=== PATIENT | male | born 1955 | race Caucasian/White ===

== ENCOUNTER 2016-12-01 05:22 | Emergency (ER) | payer OTHER, MEDICAID ==
[~2016-12-01] VITALS: Ht 177.8 cm; Wt 104.3 kg
[~2016-12-01 05:22] MED LIST: ACTOPLUS MET 501 TAB PO; AMITRIPTYLINE25 MG PO; CYCLOBENZAPRINE10 MG PO; DEXILANT60 M1 PO; FLOMAX0.4 MG PO; GABAPENTIN TAB600 MG PO; HYDROCODONE BIT1 T11 PO; LISINOPRIL40 MG PO; LOFIBRA160 MG PO; MORPHINE SULFAT3011 PO; NITROSTAT0.3 M1 SL
[2016-12-01 05:50] LABS: BILIRUBIN NEGATIVE (NEGATIVE); BLOOD 2+ (NEGATIVE); CLARITY CLEAR (CLEAR); COLOR YELLOW (YELLOW); GLUCOSE 3+ (NEGATIVE); KETONE NEGATIVE (NEGATIVE); LEUKO ESTERASE NEGATIVE (NEGATIVE); NITRITE NEGATIVE (NEGATIVE); PROTEIN 2+ (NEGATIVE); SPECIFIC GRAVITY 1.025 (1.005-1.030)
[2016-12-01 05:58] LABS: URINE AMPHETAMINES < 1000 (1000ng/ml); URINE BARBITURATES < 200 (200ng/ml); URINE COCAINE < 300 (300ng/ml)
[2016-12-01 06:03] LABS: BASO # 0.1 10*3/uL (0.0-0.1); BASO % 0.5 % (0.0-1.0); EOS # 0.3 10*3/uL (0.0-0.4); EOS % 3.1 % (1.0-4.0); HEMATOCRIT 43.6 % (42.0-52.0); HEMOGLOBIN 15.7 g/dl (14.0-18.0); IG # 0.1 10*3/uL (0.0-0.1); LYMPH % 28.5 % (27.0-41.0); MEAN CELL VOLUME 89.5 fl (80.0-94.0); MEAN CORPUSCULAR HGB 32.2 pg (27.0-31.0); MEAN PLATELET VOLUME 9.8 fl (9.6-12.3); MONO # 0.5 10*3/uL (0.1-1.0); MONO % 5.1 % (3.0-9.0); NEUT # 6.6 10*3/uL (2.3-7.9); NEUT % 62.3 % (47.0-73.0); PLATELET COUNT AUTOMATED 190 10*3/uL (130-400); RED BLOOD COUNT 4.87 10*6/uL (4.50-5.90); WHITE BLOOD COUNT 10.6 10*3/uL (4.8-10.8)
[2016-12-01 06:21] LABS: ALBUMIN 3.6 gm/dl (3.1-4.5); ALKALINE PHOSPHATASE 94 U/L (45-117); BILIRUBIN, TOTAL 0.6 mg/dl (0.2-1.0); BUN 22 mg/dl (7-24); CARBON DIOXIDE 30 mmol/L (21-32); CHLORIDE 105 mmol/L (98-107); EST GLOM FILT AFRICAN AMERICAN > 60 ml/min; GLUCOSE 268 mg/dL (65-99); POTASSIUM 4.1 mmol/L (3.5-5.1); SGOT/AST 9 IU/L (3-35); SGPT/ALT 20 U/L (12-78); SODIUM 141 mmol/L (136-145); TOTAL PROTEIN 7.1 gm/dL (6.4-8.2)
[2016-12-01 06:35] LABS: RBC 31-40 rbc/hpf (0-2)
[2016-12-01 06:36] LABS: BACTERIA TRACE; URINE REFLEX COMMENT YES (NO)
== END 2016-12-01 11:45 | disposition home or self-care (01) ==
LOC: ED 05:22
PROVIDERS: Emergency Medicine Emergency Medical Services
DX: F11.10 Opioid abuse, uncomplicated (principal); F17.200 Nicotine dependence, unspecified, uncomplicated; Z88.0 Allergy status to penicillin; Z88.8 Allergy status to other drugs, medicaments and biological substances; Z79.899 Other long term (current) drug therapy

== ENCOUNTER → 2017-05-05 | Outpatient (CLI) | payer OTHER, MEDICAID | END | disposition home or self-care (01) | LOC: RAD 13:51 | DX: J45.909 Unspecified asthma, uncomplicated (principal); E11.9 Type 2 diabetes mellitus without complications; I10 Essential (primary) hypertension; F17.200 Nicotine dependence, unspecified, uncomplicated ==

== ENCOUNTER 2017-06-18 21:05 | Emergency (ER) | payer OTHER, MEDICAID ==
[~2017-06-18] VITALS: Ht 182.8 cm; Wt 102.1 kg
[2017-06-18 21:36] LABS: BASO # 0.1 10*3/uL (0.0-0.1); BASO % 0.6 % (0.0-1.0); EOS # 0.3 10*3/uL (0.0-0.4); EOS % 3.3 % (1.0-4.0); HEMATOCRIT 41.2 % (42.0-52.0); LYMPH # 2.4 10*3/uL (1.3-4.4); LYMPH % 26.5 % (27.0-41.0); MEAN CORPUSCULAR HGB 32.4 pg (27.0-31.0); MEAN CORPUSCULAR HGB CONC 36.4 g/dl (33.0-37.0); MEAN PLATELET VOLUME 9.9 fl (9.6-12.3); MONO # 0.7 10*3/uL (0.1-1.0); MONO % 7.6 % (3.0-9.0); NEUT # 5.5 10*3/uL (2.3-7.9); NEUT % 61.7 % (47.0-73.0); PLATELET COUNT AUTOMATED 181 10*3/uL (130-400); RED BLOOD COUNT 4.63 10*6/uL (4.50-5.90); RED CELL DISTRI WIDTH 11.8 % (0-14.5)
[2017-06-18 21:47] LABS: ACT PARTIAL THROMBO TIME 23.5 SECONDS (20.8-31.5)
[2017-06-18 21:54] LABS: ALBUMIN 3.3 gm/dl (3.1-4.5); ALKALINE PHOSPHATASE 106 U/L (45-117); BUN 15 mg/dl (7-24); CHLORIDE 102 mmol/L (98-107); CREATININE 1.06 mg/dL (0.70-1.30); POTASSIUM 3.9 mmol/L (3.5-5.1); SGOT/AST 11 IU/L (3-35); SGPT/ALT 21 U/L (12-78); SODIUM 137 mmol/L (136-145); TOTAL PROTEIN 6.9 gm/dL (6.4-8.2)
[2017-06-18 21:55] LABS: TROPONIN I < 0.015 ng/ml (<0.045)
== END 2017-06-18 22:15 | disposition home or self-care (01) ==
LOC: ED 21:05
PROVIDERS: Student in an Organized Health Care Education/Training Program
DX: R00.2 Palpitations (principal); Z88.0 Allergy status to penicillin; Z88.8 Allergy status to other drugs, medicaments and biological substances; Z79.899 Other long term (current) drug therapy

== ENCOUNTER 2017-07-19 09:09 | Inpatient (IN) | payer OTHER, MEDICAID ==
[2017-07-19] VITALS (8 sets, daily range): BP systolic 112–190; BP diastolic 74–108
[~2017-07-19] VITALS: Ht 182.9 cm; Wt 102.1 kg
--- NOTE | ~2017-07-19 | ST ---
[place], [place] EXERCISE STRESS TEST REPORT [id number] UNIT #: [id number] ROOM: [facility] DOCTOR: MARIA D ARAGON MD BIRTHDATE: [birth year] DOS: Lexiscan portion of Cardiolite. 0.4 mg Lexiscan, duration of 10 seconds. Baseline cardiogram, sinus rhythm. With Lexiscan, no new EKG changes. Blood pressure and heart rate response was normal. The patient did have shortness of breath. FINAL IMPRESSION: No EKG changes. Positive for chest pain and shortness of breath. Blood pressure and heart rate response was normal. Nuclear images are reported separately. MARIA D ARAGON MD CM:STRESS:EXERCISE STRESS TEST REPORT [id number] MARIA D ARAGON MD
--- NOTE | ~2017-07-19 | CON ---
[place], [place] REPORT OF CONSULTATION NAME: [facility]SON [facility] [id number] UNIT #: [id number] ROOM: 505 DOCTOR: RENE JAIMES MD BIRTHDATE: [birth year] DOS: 07/20/2017 HISTORY OF PRESENT ILLNESS: This is a 61-year-old -[place] man with a history of coronary artery disease. He had a myocardial infarction back in 1996 and I believe he has some cardiomyopathy and has an AICD. He has a longstanding diabetes mellitus, essential hypertension, hyperlipidemia and has unilateral orchiectomy and suspected for opiate abuse. He smokes 1 pack of cigarettes per day and does not drink alcoholic beverages. He is and has 2 sons. He lives at home. He apparently woke up 4 nights ago with left anterior chest pain and heaviness was rather severe that went to the left arm and in the armpit and also to the left side of the neck. It lasted for some time. He took nitroglycerin with significant relief. He had milder episodes 3 days ago, but at night time, he has similar symptoms again. He went and saw Dr. Kumar yesterday morning and was sent to the hospital for further evaluation. He has some shortness of breath at night and sits up and smokes a cigarette to ease his symptom. He has no swelling of the lower extremity. The AICD has not discharged and he has no palpitations. He does have exertional shortness of breath and no abdominal pain, blood in the stools or any dark stools. FAMILY HISTORY: His mother had a heart attack. He does not know much about his father. HOME MEDICATIONS: Included aspirin, fenofibrate, lisinopril, metformin and Flonase. PHYSICAL EXAMINATION: GENERAL: This revealed the patient who is moderately obese and alert. He has a harsh cough. VITAL SIGNS: Temperature is normal, pulse is 80 regular, blood pressure 127/86. NECK: Normal JVP. AJR appeared to be positive. There is no bruit in the neck. HEART: There is no cardiomegaly, no murmurs are present. Good pedal pulses. EXTREMITIES: There is no edema at all in the lower extremities. RESPIRATORY: He is not tachypneic. Percussion note is normal. Auscultation reveals mildly reduced breath sounds with very few rhonchi bilaterally. LABORATORY DATA: An ECG showed normal sinus rhythm at a normal pattern. Glucose 250 mg/dL, BUN 16, creatinine 0.75, potassium 3.5 and troponin I was normal. IMPRESSION: 1. This patient with coronary artery disease and presumably ischemic cardiomyopathy, has had symptoms that are suggestive of myocardial ischemia. ECG is clearly abnormal and he has ruled out for an acute myocardial infarction. He probably would benefit from use of a beta-aure and Dr. Kumar has already recommended a Lexiscan Cardiolite study, which he will be performed tomorrow. 2. Nicotine addiction. I talked him about this and he tells me he is attempting to cut down or quit smoking. [place], [place] REPORT OF CONSULTATION NAME: MICHELE SWENSON [facility] [id number] UNIT #: [id number] ROOM: [facility] DOCTOR: RENE JAIMES MD BIRTHDATE: [birth year] I thank you for this consult. RENE JAIMES MD CM:CONSTR:REPORT OF CONSULTATION 1141 08/12/17 0812 interface
[2017-07-19 09:44] LABS: BASO % 0.4 % (0.0-1.0); EOS # 0.4 10*3/uL (0.0-0.4); EOS % 3.4 % (1.0-4.0); HEMATOCRIT 44.6 % (42.0-52.0); HEMOGLOBIN 16.3 g/dl (14.0-18.0); LYMPH # 2.6 10*3/uL (1.3-4.4); LYMPH % 23.5 % (27.0-41.0); MEAN CELL VOLUME 88.1 fl (80.0-94.0); MEAN CORPUSCULAR HGB 32.2 pg (27.0-31.0); MEAN CORPUSCULAR HGB CONC 36.5 g/dl (33.0-37.0); MEAN PLATELET VOLUME 10.4 fl (9.6-12.3); MONO # 0.6 10*3/uL (0.1-1.0); MONO % 5.4 % (3.0-9.0); NEUT # 7.3 10*3/uL (2.3-7.9); NEUT % 66.7 % (47.0-73.0); PLATELET COUNT AUTOMATED 202 10*3/uL (130-400); RED BLOOD COUNT 5.06 10*6/uL (4.50-5.90); RED CELL DISTRI WIDTH 12.1 % (0-14.5)
[2017-07-19 09:52] LABS: ACT PARTIAL THROMBO TIME 22.3 SECONDS (20.8-31.5); INTERNATIONAL NORM RATIO 0.9 (2.0-3.5)
[2017-07-19 09:57] LABS: ALBUMIN 3.4 gm/dl (3.1-4.5); ALKALINE PHOSPHATASE 110 U/L (45-117); BUN 17 mg/dl (7-24); CHLORIDE 105 mmol/L (98-107); CREATININE 0.92 mg/dL (0.70-1.30); LIPASE 140 U/L (73-393); POTASSIUM 4.1 mmol/L (3.5-5.1); SGOT/AST 10 IU/L (3-35); SGPT/ALT 25 U/L (12-78); SODIUM 137 mmol/L (136-145); TOTAL PROTEIN 7.2 gm/dL (6.4-8.2)
[2017-07-19 10:01] LABS: TROPONIN I < 0.015 ng/ml (<0.045)
[2017-07-19] MEDS ORDERED: ASPIR LOW81 MG PO (12:17)
[2017-07-19] MEDS ORDERED: FLONASE ALLERG9.9 ML NAS (12:18)
[2017-07-19 15:44] LABS: BILIRUBIN NEGATIVE (NEGATIVE); BLOOD NEGATIVE (NEGATIVE); CLARITY CLEAR (CLEAR); COLOR YELLOW (YELLOW); GLUCOSE 3+ (NEGATIVE); KETONE NEGATIVE (NEGATIVE); LEUKO ESTERASE NEGATIVE (NEGATIVE); NITRITE NEGATIVE (NEGATIVE); PH 6.5 (5.0-9.0); UROBILINOGEN 0.2 E.U./dl (0.2-1.0)
[2017-07-19 15:48] LABS: URINE AMPHETAMINES < 1000 (1000ng/ml); URINE BARBITURATES < 200 (200ng/ml); URINE BENZODIAZEPINES < 200 (200ng/ml); URINE CANNABINOIDS (THC) < 50 (50ng/ml); URINE COCAINE < 300 (300ng/ml); URINE METHADONE < 300 (300ng/ml); URINE OPIATES > 300 (300ng/ml); URINE PHENCYCLIDINE < 25 (25ng/ml)
[2017-07-19 15:55] LABS: BACTERIA 2+; RBC 0-2 rbc/hpf (0-2); WBC 0-2 wbc/hpf (0-5)
[2017-07-20] VITALS: BP 122/60; BP 159/63
[2017-07-20 04:00] VITALS: BP 109/56
[2017-07-20 07:10] LABS: ALBUMIN 3.2 gm/dl (3.1-4.5); ALKALINE PHOSPHATASE 103 U/L (45-117); BUN 16 mg/dl (7-24); CHLORIDE 105 mmol/L (98-107); CHOLESTEROL 200 mg/dL (<200); CREATININE 0.75 mg/dL (0.70-1.30); FREE T4 1.13 ng/dl (0.76-1.46); HDL CHOLESTEROL 40 mg/dl (40-60); LDL CHOLESTEROL 87 mg/dL (9-159); PHOSPHOROUS 2.7 mg/dL (2.5-4.9); POTASSIUM 3.5 mmol/L (3.5-5.1); SGOT/AST 7 IU/L (3-35); SGPT/ALT 20 U/L (12-78); SODIUM 139 mmol/L (136-145); TOTAL PROTEIN 6.6 gm/dL (6.4-8.2); TRIGLYCERIDES 363 mg/dl (<150); VLDL CHOLESTEROL 73 mg/dL (6-40)
[2017-07-20 07:16] LABS: THYROID STIM HORMONE (HS) 0.899 uIU/ml (0.358-4.75)
[2017-07-20 08:00] VITALS: BP 127/86
[2017-07-20 08:34] LABS: VITAMIN D, 25-HYDROXY 8.3 ng/mL (30-100)
[2017-07-20 12:00] VITALS: BP 113/52
[2017-07-20 16:00] VITALS: BP 108/67
[2017-07-20 20:00] VITALS: BP 109/56
[2017-07-21] VITALS: BP 149/83
[2017-07-21 07:01] LABS: BASO # 0.1 10*3/uL (0.0-0.1); BASO % 0.6 % (0.0-1.0); EOS # 0.3 10*3/uL (0.0-0.4); EOS % 3.7 % (1.0-4.0); HEMATOCRIT 44.8 % (42.0-52.0); HEMOGLOBIN 15.9 g/dl (14.0-18.0); LYMPH # 2.9 10*3/uL (1.3-4.4); LYMPH % 32.4 % (27.0-41.0); MEAN CELL VOLUME 89.2 fl (80.0-94.0); MEAN CORPUSCULAR HGB 31.7 pg (27.0-31.0); MEAN CORPUSCULAR HGB CONC 35.5 g/dl (33.0-37.0); MEAN PLATELET VOLUME 10.5 fl (9.6-12.3); MONO # 0.6 10*3/uL (0.1-1.0); MONO % 6.2 % (3.0-9.0); NEUT # 5.1 10*3/uL (2.3-7.9); NEUT % 56.5 % (47.0-73.0); PLATELET COUNT AUTOMATED 182 10*3/uL (130-400); RED BLOOD COUNT 5.02 10*6/uL (4.50-5.90); RED CELL DISTRI WIDTH 12.2 % (0-14.5)
[2017-07-21 07:02] LABS: ALBUMIN 3.1 gm/dl (3.1-4.5); ALKALINE PHOSPHATASE 100 U/L (45-117); BUN 21 mg/dl (7-24); CHLORIDE 106 mmol/L (98-107); CREATININE 0.77 mg/dL (0.70-1.30); POTASSIUM 4.1 mmol/L (3.5-5.1); SGOT/AST 9 IU/L (3-35); SGPT/ALT 18 U/L (12-78); SODIUM 138 mmol/L (136-145); TOTAL PROTEIN 6.7 gm/dL (6.4-8.2)
[2017-07-21 08:00] VITALS: BP 105/74
[2017-07-21 12:00] VITALS: BP 119/55
[2017-07-21] MEDS ORDERED: LOPRESSOR25 MG PO (15:34)
[2017-07-21] MEDS ORDERED: GLUCOPHAGE500 MG PO (15:34)
[2017-07-21] MEDS ORDERED: NITROSTAT0.4 MG SL (15:34)
[2017-07-21 16:00] VITALS: BP 113/73
== END 2017-07-21 19:58 | disposition home or self-care (01) | DRG 392 ==
LOC: ED 09:09 → 5E 11:00 → EDHOLD 11:00 → 4E 11:00 → 5E 11:06 → 4E 07-21 12:25 → 5E 07-21 12:40
PROVIDERS: Emergency Medicine; Registered Nurse
PROC: 4A02XM4 Measurement of Cardiac Total Activity, External Approach (ICD-10-PCS; principal; 2017-07-21)
PROC: 3E073KZ Introduction of Other Diagnostic Substance into Coronary Artery, Percutaneous Approach (ICD-10-PCS; principal; 2017-07-21)
DX: K21.9 Gastro-esophageal reflux disease without esophagitis (principal); I11.0 Hypertensive heart disease with heart failure; E11.65 Type 2 diabetes mellitus with hyperglycemia; I50.9 Heart failure, unspecified; I25.2 Old myocardial infarction; R00.2 Palpitations; F11.10 Opioid abuse, uncomplicated; F17.210 Nicotine dependence, cigarettes, uncomplicated; E66.09 Other obesity due to excess calories; E83.51 Hypocalcemia; M54.5 Low back pain; G89.29 Other chronic pain; J43.9 Emphysema, unspecified; Z95.1 Presence of aortocoronary bypass graft; Z95.810 Presence of automatic (implantable) cardiac defibrillator; Z82.49 Family history of ischemic heart disease and other diseases of the circulatory system; Z88.8 Allergy status to other drugs, medicaments and biological substances; Z68.32 Body mass index [BMI] 32.0-32.9, adult; Z71.6 Tobacco abuse counseling; Z88.0 Allergy status to penicillin; Z79.82 Long term (current) use of aspirin; Z79.899 Other long term (current) drug therapy; Z79.84 Long term (current) use of oral hypoglycemic drugs; E78.2 Mixed hyperlipidemia

== ENCOUNTER 2017-11-17 11:45 | Inpatient (IN) | payer OTHER, MEDICAID ==
[~2017-11-17] VITALS: Ht 182.8 cm; Wt 104.3 kg
--- NOTE | ~2017-11-17 | PR ---
[place], [place] PROGRESS NOTE NAME: MICHELE SWENSON UNIT #: [id number] ROOM: 314 DOCTOR: ZEV WOMACK MD BIRTHDATE: [birth year] DOS: 11/21/2017 CHIEF COMPLAINT: "I guess I feel a little better." SUMMARY OF THE VISIT: The patient was interviewed first in the dining area where he was sitting engaging in a craft and then later in his room. The patient reports that he is feeling somewhat better and feels that the pain is much less. He still reports, however, considerable difficulty in sleeping and states that he tosses and turns through most of the night. This fact is confirmed by nursing who reports that he has had very fitful sleep and has not had a night that he slept through the entire night yet. MENTAL STATUS: He is alert and oriented. Mood does seem to be trending towards euthymia. Affect is more appropriate. There is no ysabel or hypomania. There is lessening of any psychotic symptoms. Memory for the most part is intact. PLAN: I will increase his Zyprexa from 10 to 20 mg at bedtime augmenting the effectiveness of the Cymbalta. We will continue to engage in individual and rivera milieu activity. One of the major issues now confronting the patient is he is now homeless. financial services sales representative is aware of this fact and helping to rectify it. ZEV WOMACK MD CM:PNTRANS [id number] ZEV WOMACK MD 11/21/17 1043 interface
--- NOTE | ~2017-11-17 | WRIGHTHP ---
[place], [place] PATIENT HISTORY AND PHYSICAL EXAM NAME: MICHELE SWENSON [facility] #: [id number] UNIT #: [id number] ROOM: 314 DOCTOR: ZEV WOMACK MD BIRTHDATE: [birth year] DOS: 11/17/2017 CHIEF COMPLAINT: "I might as well be if I have to keep living in this pain." HISTORY OF PRESENT ILLNESS: This is a 62-year-old white male who was sent here from [facility] due to increased depression with suicidal ideation and a plan. The patient had presented to [place] [facility] complaining of increased chronic pain. The patient was not given any type of opiates and then began to claim that he was depressed for sometime and actively suicidal with a plan to kill himself. The patient was ultimately admitted here to rule out further organic factors to attempt to stabilize on medication, to engage in individual and rivera milieu activity with the plan ultimately to return to the least restrictive environment when psychiatrically stable. PAST MEDICAL HISTORY: Remarkable for diabetes, hypertension, hyperlipidemia, vitamin D deficiency, a questionable history of opiate abuse and a history of a fractured pelvis. ALLERGIES: He also has allergies to PENICILLIN and ANTIHISTAMINES. MENTAL STATUS: Upon admission, the patient is alert and oriented. Mood does seem to be very depressed. Affect is constricted and he is rather withdrawn and very much with neurovegetative symptoms. He endorses positive suicidal ideation with a plan. There is no hypomania or ysabel. There are no overt auditory or visual hallucinations. No delusions, no paranoia. Short, intermediate, and long-term memory for the most part is intact. DIAGNOSIS: Major depression, recurrent, severe. PLAN: I have already started him on Cymbalta 30 mg twice daily. I will go ahead and aggressively titrate this to 60 mg twice daily in an effort to combat the depression, reduce anxiety, aid sleep and appetite and very importantly reduce his pain level. I will go ahead and order him Zyprexa 5 mg at bedtime, this too to help sleep but also to augment the effectiveness of the Cymbalta. I will order Zostrix high potency cream t.i.d. to begin to address any pain issues, any other pain management I defer wholly to the hospitalist to determine the validity of these complaints and whether or not treatment should involve opiates or not. We will engage in individual and rivera milieu activity, explore possible placement options post-discharge, discharging him then to the least restrictive environment when psychiatrically stable. [place], [place] PATIENT HISTORY AND PHYSICAL EXAM NAME: MICHELE SWENSON UNIT #: [id number] ROOM: [facility] DOCTOR: ZEV WOMACK MD BIRTHDATE: [birth year] ZEV WOMACK MD CM:HISPHYS:PATIENT HISTORY AND PHYSICAL EXAMINATION 0947 1009 ZEV WOMACK MD 11/18/17 1008 interface
--- NOTE | ~2017-11-17 | PR ---
[place], [place] PROGRESS NOTE NAME: MICHELE SWENSON UNIT #: [id number] ROOM: 314 DOCTOR: ZEV WOMACK MD BIRTHDATE: [birth year] DOS: 11/20/2017 CHIEF COMPLAINT: The patient was sleeping. SUMMARY OF THE VISIT: The patient was resting in bed. I attempted to engage him, but he was very somnolent. Nurses report that although he reported that he slept well through the night, it was actually the contrary. They noticed that he tossed and turned throughout most of the night, not resting much at all. He seems to have his days and nights mixed up. He is much more pleasant, though upon approach when they talked to him and my conversation with him yesterday was much more pleasant. He does seem to report improvement in his overall pain control and is more comfortable. He is tolerating the current medication regimen well. MENTAL STATUS: Limited now because of his somnolence. PLAN: I will go ahead and order Rozerem 8 straight at bedtime to try to get his days and nights back on target. Maintain his current dose of Zyprexa and Cymbalta. Engage in individual and rivera milieu activity, returning to the least restrictive environment when stable. ZEV WOMACK MD CM:PNTRANS ZEV WOMACK MD 11/20/17 0932 interface
--- NOTE | ~2017-11-17 | PR ---
[place], [place] PROGRESS NOTE NAME: MICHELE SWENSON UNIT #: [id number] ROOM: 314 DOCTOR: ZEV WOMACK MD BIRTHDATE: [birth year] DOS: 11/19/2017 CHIEF COMPLAINT: "I think I actually feel a little better. The pain is a little less." SUMMARY OF THE VISIT: The patient was interviewed as he rested in the quiet room. He reported to me that on a positive note, he feels that the intensity of the pain has definitely lessened; however, he did report that he did not sleep well at all last night, which was confirmed by nurses. Nurses also report that he seemed to be experiencing visual and/or auditory hallucinations and was responding to them. MENTAL STATUS: This morning, he is alert and oriented. Mood does seem to be starting to trend towards euthymia. Affect is much more appropriate. There is no ysabel or hypomania. I did not elicit any psychotic symptoms. Memory for the most part is intact. PLAN: I have already brought him to the maximum dose of Cymbalta, which is 60 mg twice daily. He is on 5 of Zyprexa at bedtime, I will change this to 10 mg at bedtime to see if this impacts positively on his sleep patterns and decreases the psychotic symptomatology. We will engage him in individual and rivera milieu activity, returning to the least restrictive environment when stable. ZVE WOMACK MD CM:PNTRANS 1102 1131 ZEV WOMACK MD 11/19/17 1131 interface
--- NOTE | ~2017-11-17 | PR ---
[place], [place] PROGRESS NOTE [id number] #: [id number] ROOM: 314 DOCTOR: BRANDO PEREZ DO BIRTHDATE: [birth year] DOS: 11/23/2017 CHIEF COMPLAINT: "I feel fine today." SUMMARY OF VISIT: The patient was interviewed in his room in his bed. He states that he is feeling much better. According to staff, he has not complained of pain or asked for pain medications throughout the night. States that he is sleeping better. MENTAL STATUS: He is alert and oriented. His mood is trending towards euthymia with a more appropriate affect. He does not have any current symptoms of ysabel or hypomania. There is improvement with his depression and psychotic symptoms. Memory is intact. PLAN: We will continue his current psychotropic regimen at this time. We will continue to monitor him and his pain level. Continue to engage him in individual and group activities with the plan to discharge him to the least restrictive environment when psychiatrically stable. BRANDO PEREZ DO ZEV WOMACK MD CM:PNKIARA 1154 1449 BRANDO PEREZ DO 11/23/17 1448 interface
--- NOTE | ~2017-11-17 | PR ---
[place], [place] PROGRESS NOTE NAME: MICHELE SWENSON UNIT #: [id number] ROOM: 314 DOCTOR: BRANDO PEREZ DO BIRTHDATE: [birth year] DOS: 11/22/2017 CHIEF COMPLAINT: "I felt fine yesterday." SUMMARY OF THE VISIT: The patient was interviewed in his room with the patient lying down. He states that yesterday he felt better. He states that his pain has decreased; however, his medication does not seem to last the entire time. He does state that he is sleeping better. Per reports, the last night about 3 a.m., he had woken up and it was difficult to fall back asleep due to pain. He has now talked to social work to find a place to live, he reports. MENTAL STATUS: He is alert and oriented. His mood is trending towards euthymia with a more appropriate affect. He does not have any symptoms of ysabel or hypomania and there seems to be improvement with his psychotic symptoms. Memory is intact. PLAN: We will continue his current psychotropic regimen and we will monitor has the Cymbalta seems to be improving the patient's pain. We will continue to engage him in the individual and group activities with the plan to discharge him to the least restrictive environment when he is psychiatrically stable. We will continue to work with Wood Casket Assembler as the patient does not have a place to go at this time. BRANDO PEREZ DO ZEV WOMACK MD CM:PNTRANS 1149 1243 BRANDO PEREZ DO 11/22/17 1243 interface
--- NOTE | ~2017-11-17 | DS ---
[place], [place] DISCHARGE SUMMARY NAME: MICHELE SWENSON [facility] #: [id number] UNIT #: [id number] ROOM: 314 DOCTOR: ZEV WOMACK MD BIRTHDATE: [birth year] DOS: 11/24/2017 CHIEF COMPLAINT: "I might as well be if I have to keep living in this pain." HISTORY OF PRESENT ILLNESS: This is a 62-year-old white male who was sent here from [facility] due to increased depression with suicidal ideation and a plan. He had presented to the [place] [facility] complaining of chronic pain and was not given any opiates at that time. He began to state that he was depressed for sometime and was actively suicidal with a plan to kill himself. He was sent here then to rule out further organicity, to stabilize on medication, to engage in individual and rivera milieu activity, returning to the least restrictive environment when psychiatrically stable. PAST MEDICAL HISTORY: Remarkable for diabetes, hypertension, hyperlipidemia, vitamin D deficiency, opiate abuse and a fractured pelvis as well as allergies to PENICILLIN and ANTIHISTAMINES. SUMMARY OF HOSPITAL COURSE: The patient was admitted to the unit where he was started on Cymbalta 30 mg twice daily. Initially, he was very much angry and pain med seeking and stated that he was in horrible pain and could not be consoled. 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 Cymbalta was augmented eventually with Zyprexa 5 mg at bedtime. He tolerated these well, but still continued to be symptomatic, Cymbalta was gradually increased then to 60 mg twice daily and Zyprexa was maxed out at 20 mg at bedtime with good results. With this combination, he actually became brighter and more pleasant. He reported that he was sleeping soundly through the night. He also noted that his pain was considerably reduced and he was feeling much more positive and comfortable. I also utilized Zostrix for him as a non-opiate and non-internal medicine in attempt to reduce pain. With this combination, he did feel that he was able to return home. He was able at this point to reach out to his son and he was going to move into his son's house at least until the end of the month as he looked to find alternative living situation. MENTAL STATUS AT DISCHARGE: He is alert and oriented to person, place and time. Mood was strongly trending towards euthymia. Affect was much more appropriate. There is no ysabel, hypomania or psychosis. Memory is fairly well intact. DISCHARGE DIAGNOSES: Major depression, recurrent, severe and chronic pain syndrome. PLAN: All of his prescriptions have been printed and will be sent with him. He will have followup in the community. Medically and psychiatrically he is stable by psych. Biopsychosocial needs are being met by his family and the community. [place], [place] DISCHARGE SUMMARY NAME: MICHELE SWENSON UNIT #: [id number] ROOM: 314 DOCTOR: ZEV WOMACK MD BIRTHDATE: [birth year] ZEV WOMACK MD CM:DISCHKIKO 9 9 ZEV WOMACK MD 11/24/17 0929 interface
[~2017-11-17 11:45] MED LIST changes: +ASPIR LOW81 MG PO; +FENOFIBRATE160 MG PO; +FLONASE ALLERG9.9 ML NAS; +GLUCOPHAGE500 MG PO; -LOFIBRA160 MG PO; +LOPRESSOR25 MG PO; +NITROSTAT0.4 MG SL
[2017-11-17] MEDS ORDERED: TAMSULOSIN HCL0.4 MG PO (13:13)
[2017-11-17 15:48] VITALS: BP 126/78
[2017-11-17 16:13] VITALS: BP 126/78
[2017-11-17 20:15] VITALS: BP 140/75
[2017-11-17 21:07] VITALS: BP 125/72
[2017-11-18 03:20] LABS: BILIRUBIN NEGATIVE (NEGATIVE); BLOOD NEGATIVE (NEGATIVE); CLARITY CLEAR (CLEAR); COLOR YELLOW (YELLOW); GLUCOSE 3+ (NEGATIVE); KETONE NEGATIVE (NEGATIVE); LEUKO ESTERASE NEGATIVE (NEGATIVE); NITRITE NEGATIVE (NEGATIVE); PH 5.5 (5.0-9.0); SPECIFIC GRAVITY 1.015 (1.005-1.030); UROBILINOGEN 0.2 E.U./dl (0.2-1.0)
[2017-11-18 03:38] LABS: EPITHELIAL CELLS 0-5
[2017-11-18 03:39] LABS: URINE AMPHETAMINES < 1000 (1000ng/ml); URINE BARBITURATES < 200 (200ng/ml); URINE BENZODIAZEPINES < 200 (200ng/ml); URINE CANNABINOIDS (THC) < 50 (50ng/ml); URINE COCAINE < 300 (300ng/ml); URINE METHADONE < 300 (300ng/ml); URINE OPIATES < 300 (300ng/ml); URINE PHENCYCLIDINE < 25 (25ng/ml)
[2017-11-18 05:56] LABS: ALBUMIN 3.6 gm/dl (3.1-4.5); BUN 19 mg/dl (7-24); CHLORIDE 103 mmol/L (98-107); CHOLESTEROL 218 mg/dL (<200); CREATININE 0.89 mg/dL (0.70-1.30); HDL CHOLESTEROL 34 mg/dl (40-60); LDL CHOLESTEROL 112 mg/dL (9-159); SGOT/AST 14 IU/L (3-35); SGPT/ALT 21 U/L (12-78); SODIUM 135 mmol/L (136-145); TOTAL PROTEIN 7.1 gm/dL (6.4-8.2); TRIGLYCERIDES 360 mg/dl (<150); VLDL CHOLESTEROL 72 mg/dL (6-40)
[2017-11-18 06:03] LABS: ALKALINE PHOSPHATASE 119 U/L (45-117); THYROID STIM HORMONE (HS) 0.841 uIU/ml (0.358-4.75)
[2017-11-18 06:12] LABS: BASO # 0.1 10*3/uL (0.0-0.1); BASO % 0.6 % (0.0-1.0); EOS # 0.4 10*3/uL (0.0-0.4); EOS % 3.5 % (1.0-4.0); HEMATOCRIT 49.3 % (42.0-52.0); HEMOGLOBIN 17.4 g/dl (14.0-18.0); LYMPH # 2.9 10*3/uL (1.3-4.4); MEAN CELL VOLUME 87.6 fl (80.0-94.0); MEAN CORPUSCULAR HGB 30.9 pg (27.0-31.0); MEAN CORPUSCULAR HGB CONC 35.3 g/dl (33.0-37.0); MEAN PLATELET VOLUME 9.9 fl (9.6-12.3); MONO # 0.7 10*3/uL (0.1-1.0); MONO % 6.3 % (3.0-9.0); NEUT % 63.1 % (47.0-73.0); PLATELET COUNT AUTOMATED 205 10*3/uL (130-400); RED BLOOD COUNT 5.63 10*6/uL (4.50-5.90); WHITE BLOOD COUNT 11.1 10*3/uL (4.8-10.8)
[2017-11-18 07:30] VITALS: BP 128/70
[2017-11-18 07:44] LABS: VITAMIN D, 25-HYDROXY 10.3 ng/mL (30-100)
[2017-11-18 20:24] VITALS: BP 115/62
[2017-11-19 07:25] VITALS: BP 137/84
[2017-11-19 19:36] VITALS: BP 141/86
[2017-11-20 07:26] VITALS: BP 144/86
[2017-11-20 19:47] VITALS: BP 137/76
[2017-11-21 07:59] VITALS: BP 143/82
[2017-11-21 20:31] VITALS: BP 140/50
[2017-11-22 08:07] VITALS: BP 142/73
[2017-11-22 19:41] VITALS: BP 140/72
[2017-11-23 09:30] VITALS: BP 114/65
[2017-11-23 20:13] VITALS: BP 124/72
[2017-11-24 08:47] VITALS: BP 118/75; BP 128/76
[2017-11-24] MEDS ORDERED: Zostrix 0.1% T (09:15)
[2017-11-24] MEDS ORDERED: DULOXETINE HCL60 MG PO (09:15)
[2017-11-24] MEDS ORDERED: OLANZAPINE10 MG PO (09:15)
[2017-11-24] MEDS ORDERED: MOBIC7.5 MG PO (14:43)
[2017-11-24] MEDS ORDERED: VITAMIN D-32000 UNI1 PO (14:43)
== END 2017-11-24 16:40 | disposition home or self-care (01) | DRG 885 ==
LOC: 3N 11:45
PROVIDERS: Pathology Blood Banking & Transfusion Medicine; Psychiatry & Neurology Psychiatry
DX: F33.2 Major depressive disorder, recurrent severe without psychotic features (principal); R45.851 Suicidal ideations; E11.65 Type 2 diabetes mellitus with hyperglycemia; I10 Essential (primary) hypertension; G89.4 Chronic pain syndrome; M17.11 Unilateral primary osteoarthritis, right knee; E78.5 Hyperlipidemia, unspecified; Z88.0 Allergy status to penicillin; Z88.8 Allergy status to other drugs, medicaments and biological substances; Z95.810 Presence of automatic (implantable) cardiac defibrillator; Z79.899 Other long term (current) drug therapy; Z79.82 Long term (current) use of aspirin

== ENCOUNTER 2018-02-14 12:00 | Emergency (ER) | payer OTHER ==
[~2018-02-14] VITALS: Ht 187.9 cm; Wt 104.3 kg
--- NOTE | ~2018-02-14 | EKG ---
[place], [place] ELECTROCARDIOGRAM REPORT NAME: MICHELE SWENSON UNIT #: [id number] ROOM: DOCTOR: RENE JAIMES MD BIRTHDATE: [birth year] DOS: 02/14/2018 TIME: 1222 hours. FINDINGS: 1. Normal sinus rhythm at 68 beats per minute. 2. Low voltage in limb leads. 3. Tracing is normal otherwise. RENE JAIMES MD CM:EKGRPT:ELECTROCARDIOGRAM REPORT [id number] 1201 RENE JAIMES MD
[~2018-02-14 12:00] MED LIST changes: +DULOXETINE HCL60 MG PO; +MOBIC7.5 MG PO; +OLANZAPINE10 MG PO; +TAMSULOSIN HCL0.4 MG PO; +VITAMIN D-32000 UNI1 PO; +Zostrix 0.1% T
[2018-02-14 12:42] LABS: BILIRUBIN NEGATIVE (NEGATIVE); BLOOD NEGATIVE (NEGATIVE); CLARITY CLEAR (CLEAR); COLOR YELLOW (YELLOW); GLUCOSE 3+ (NEGATIVE); KETONE NEGATIVE (NEGATIVE); LEUKO ESTERASE NEGATIVE (NEGATIVE); NITRITE NEGATIVE (NEGATIVE); SPECIFIC GRAVITY <= 1.005 (1.005-1.030); UROBILINOGEN 0.2 E.U./dl (0.2-1.0)
[2018-02-14 12:49] LABS: BACTERIA TRACE; EPITHELIAL CELLS 0-2; RBC 0-2 rbc/hpf (0-2); WBC 0-2 wbc/hpf (0-5)
[2018-02-14 12:51] LABS: BASO # 0.1 10*3/uL (0.0-0.1); BASO % 0.5 % (0.0-1.0); EOS # 0.2 10*3/uL (0.0-0.4); EOS % 2.6 % (1.0-4.0); HEMATOCRIT 42.9 % (42.0-52.0); HEMOGLOBIN 15.4 g/dl (14.0-18.0); LYMPH # 2.3 10*3/uL (1.3-4.4); LYMPH % 24.4 % (27.0-41.0); MEAN CELL VOLUME 87.6 fl (80.0-94.0); MEAN CORPUSCULAR HGB 31.4 pg (27.0-31.0); MEAN CORPUSCULAR HGB CONC 35.9 g/dl (33.0-37.0); MEAN PLATELET VOLUME 9.8 fl (9.6-12.3); MONO # 0.5 10*3/uL (0.1-1.0); MONO % 5.5 % (3.0-9.0); NEUT # 6.2 10*3/uL (2.3-7.9); NEUT % 66.5 % (47.0-73.0); PLATELET COUNT AUTOMATED 170 10*3/uL (130-400); RED CELL DISTRI WIDTH 11.7 % (0-14.5); WHITE BLOOD COUNT 9.4 10*3/uL (4.8-10.8)
[2018-02-14 13:07] LABS: ALBUMIN 3.2 gm/dl (3.1-4.5); ALKALINE PHOSPHATASE 141 U/L (45-117); BUN 12 mg/dl (7-24); CHLORIDE 106 mmol/L (98-107); CREATININE 0.93 mg/dL (0.70-1.30); LIPASE 105 U/L (73-393); POTASSIUM 3.9 mmol/L (3.5-5.1); SGOT/AST 20 IU/L (3-35); SGPT/ALT 39 U/L (12-78); SODIUM 138 mmol/L (136-145); TOTAL PROTEIN 6.6 gm/dL (6.4-8.2)
[2018-02-14 13:08] LABS: TROPONIN I < 0.015 ng/ml (<0.045)
== END 2018-02-14 14:48 | disposition home or self-care (01) ==
LOC: ED 12:00
PROVIDERS: Nurse Practitioner Family
DX: G89.29 Other chronic pain (principal); M54.5 Low back pain; E11.9 Type 2 diabetes mellitus without complications; I10 Essential (primary) hypertension; I25.10 Atherosclerotic heart disease of native coronary artery without angina pectoris; Z88.0 Allergy status to penicillin; Z88.8 Allergy status to other drugs, medicaments and biological substances; Z79.899 Other long term (current) drug therapy

== ENCOUNTER 2018-03-06 10:56 | Inpatient (IN) | payer OTHER ==
[~2018-03-06] VITALS: Ht 182.8 cm; Wt 104.5 kg
[2018-03-06] VITALS (9 sets, daily range): BP systolic 129–140; BP diastolic 73–92
--- NOTE | ~2018-03-06 | EKG ---
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
[2018-03-06 11:35] LABS: BASO # 0.1 10*3/uL (0.0-0.1); BASO % 0.9 % (0.0-1.0); EOS # 0.4 10*3/uL (0.0-0.4); EOS % 4.5 % (1.0-4.0); HEMATOCRIT 47.2 % (42.0-52.0); HEMOGLOBIN 16.6 g/dl (14.0-18.0); LYMPH # 2.9 10*3/uL (1.3-4.4); LYMPH % 30.7 % (27.0-41.0); MEAN CELL VOLUME 88.7 fl (80.0-94.0); MEAN CORPUSCULAR HGB 31.2 pg (27.0-31.0); MEAN CORPUSCULAR HGB CONC 35.2 g/dl (33.0-37.0); MONO # 0.7 10*3/uL (0.1-1.0); MONO % 7.8 % (3.0-9.0); NEUT # 5.2 10*3/uL (2.3-7.9); NEUT % 55.7 % (47.0-73.0); PLATELET COUNT AUTOMATED 204 10*3/uL (130-400); RED BLOOD COUNT 5.32 10*6/uL (4.50-5.90); RED CELL DISTRI WIDTH 11.8 % (0-14.5); WHITE BLOOD COUNT 9.3 10*3/uL (4.8-10.8)
[2018-03-06 11:53] LABS: ALBUMIN 3.7 gm/dl (3.1-4.5); ALKALINE PHOSPHATASE 149 U/L (45-117); BUN 17 mg/dl (7-24); CHLORIDE 100 mmol/L (98-107); CREATININE 1.09 mg/dL (0.70-1.30); POTASSIUM 4.4 mmol/L (3.5-5.1); SGOT/AST 14 IU/L (3-35); SGPT/ALT 33 U/L (12-78); SODIUM 134 mmol/L (136-145); TOTAL PROTEIN 7.5 gm/dL (6.4-8.2)
[2018-03-06 11:57] LABS: TROPONIN I < 0.015 ng/ml (<0.045)
[2018-03-06] MEDS ORDERED: ACTOPLUS MET 11 EACH PO (14:52)
[2018-03-06] MEDS ORDERED: MELOXICAM7.5 MG PO (14:54)
[2018-03-06] MEDS ORDERED: METFORMIN750 MG PO (14:55)
[2018-03-06 17:12] LABS: BILIRUBIN NEGATIVE (NEGATIVE); BLOOD NEGATIVE (NEGATIVE); CLARITY CLEAR (CLEAR); COLOR YELLOW (YELLOW); GLUCOSE 3+ (NEGATIVE); KETONE NEGATIVE (NEGATIVE); LEUKO ESTERASE NEGATIVE (NEGATIVE); NITRITE NEGATIVE (NEGATIVE); PH 5.5 (5.0-9.0); SPECIFIC GRAVITY 1.015 (1.005-1.030); UROBILINOGEN 0.2 E.U./dl (0.2-1.0)
[2018-03-06 17:20] LABS: BACTERIA 1+; RBC 0-2 rbc/hpf (0-2); WBC 0-2 wbc/hpf (0-5)
[2018-03-07] VITALS: BP 129/73
[2018-03-07 07:01] LABS: BUN 21 mg/dl (7-24); CHLORIDE 104 mmol/L (98-107); CHOLESTEROL 218 mg/dL (<200); CREATININE 0.89 mg/dL (0.70-1.30); SODIUM 141 mmol/L (136-145); TRIGLYCERIDES 377 mg/dl (<150); VLDL CHOLESTEROL 75 mg/dL (6-40)
[2018-03-07 07:11] LABS: FREE T4 0.94 ng/dl (0.76-1.46); HDL CHOLESTEROL 35 mg/dl (40-60); LDL CHOLESTEROL 108 mg/dL (9-159)
[2018-03-07 08:00] VITALS: BP 144/70
[2018-03-07 12:00] VITALS: BP 124/61
[2018-03-07 16:00] VITALS: BP 104/60
[2018-03-07 20:00] VITALS: BP 136/74
[2018-03-08] VITALS: BP 144/67
[2018-03-08 08:00] VITALS: BP 108/70; BP 121/54
[2018-03-08 12:00] VITALS: BP 126/62
[2018-03-08 16:00] VITALS: BP 110/87
[2018-03-08 20:00] VITALS: BP 108/46
[2018-03-09] VITALS: BP 104/66; BP 93/51
[2018-03-09 06:30] LABS: BASO # 0.1 10*3/uL (0.0-0.1); BASO % 0.8 % (0.0-1.0); EOS # 0.4 10*3/uL (0.0-0.4); EOS % 4.9 % (1.0-4.0); HEMATOCRIT 45.7 % (42.0-52.0); HEMOGLOBIN 15.8 g/dl (14.0-18.0); LYMPH # 2.4 10*3/uL (1.3-4.4); LYMPH % 32.9 % (27.0-41.0); MEAN CELL VOLUME 90.3 fl (80.0-94.0); MEAN CORPUSCULAR HGB 31.2 pg (27.0-31.0); MEAN CORPUSCULAR HGB CONC 34.6 g/dl (33.0-37.0); MONO # 0.5 10*3/uL (0.1-1.0); MONO % 6.8 % (3.0-9.0); NEUT % 54.2 % (47.0-73.0); PLATELET COUNT AUTOMATED 176 10*3/uL (130-400); RED BLOOD COUNT 5.06 10*6/uL (4.50-5.90); RED CELL DISTRI WIDTH 11.9 % (0-14.5); WHITE BLOOD COUNT 7.3 10*3/uL (4.8-10.8)
[2018-03-09 06:41] LABS: BUN 26 mg/dl (7-24); CHLORIDE 106 mmol/L (98-107); CREATININE 0.74 mg/dL (0.70-1.30); POTASSIUM 4.2 mmol/L (3.5-5.1); SODIUM 140 mmol/L (136-145)
[2018-03-09 08:00] VITALS: BP 130/90
[2018-03-09 12:00] VITALS: BP 103/52
[2018-03-09] MEDS ORDERED: LEVEMIR FL100 UNIT/1 SQ (12:44)
[2018-03-09] MEDS ORDERED: Humalog SQ (12:44)
== END 2018-03-09 15:29 | disposition home or self-care (01) | DRG 205 ==
LOC: ED 10:56 → 5E 12:16 → EDHOLD 12:16 → 5E 12:37
PROVIDERS: Internal Medicine; Nurse Practitioner Family
DX: M94.0 Chondrocostal junction syndrome [Tietze] (principal); J18.9 Pneumonia, unspecified organism; E11.65 Type 2 diabetes mellitus with hyperglycemia; E87.1 Hypo-osmolality and hyponatremia; F33.9 Major depressive disorder, recurrent, unspecified; I10 Essential (primary) hypertension; E78.2 Mixed hyperlipidemia; G89.4 Chronic pain syndrome; E55.9 Vitamin D deficiency, unspecified; R07.9 Chest pain, unspecified; F11.10 Opioid abuse, uncomplicated; M19.90 Unspecified osteoarthritis, unspecified site; Z79.4 Long term (current) use of insulin; Z72.0 Tobacco use; Z88.8 Allergy status to other drugs, medicaments and biological substances; Z95.810 Presence of automatic (implantable) cardiac defibrillator; Z88.0 Allergy status to penicillin; Z79.82 Long term (current) use of aspirin; Z71.6 Tobacco abuse counseling; K21.9 Gastro-esophageal reflux disease without esophagitis; F41.9 Anxiety disorder, unspecified

== ENCOUNTER 2018-03-22 10:25 | Emergency (ER) | payer OTHER ==
[~2018-03-22] VITALS: Ht 182.8 cm; Wt 104.3 kg
--- NOTE | ~2018-03-22 | EKG ---
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
[~2018-03-22 10:25] MED LIST changes: +ACTOPLUS MET 11 EACH PO; +Humalog SQ; +LEVEMIR FL100 UNIT/1 SQ; +MELOXICAM7.5 MG PO; +METFORMIN750 MG PO
[2018-03-22 11:08] LABS: BASO # 0.1 10*3/uL (0.0-0.1); BASO % 0.5 % (0.0-1.0); EOS # 0.4 10*3/uL (0.0-0.4); EOS % 3.7 % (1.0-4.0); HEMATOCRIT 45.3 % (42.0-52.0); HEMOGLOBIN 16.3 g/dl (14.0-18.0); LYMPH # 2.6 10*3/uL (1.3-4.4); LYMPH % 23.1 % (27.0-41.0); MEAN CELL VOLUME 88.5 fl (80.0-94.0); MEAN CORPUSCULAR HGB 31.8 pg (27.0-31.0); MONO # 0.8 10*3/uL (0.1-1.0); NEUT # 7.2 10*3/uL (2.3-7.9); NEUT % 65.2 % (47.0-73.0); PLATELET COUNT AUTOMATED 187 10*3/uL (130-400); RED BLOOD COUNT 5.12 10*6/uL (4.50-5.90); RED CELL DISTRI WIDTH 11.8 % (0-14.5); WHITE BLOOD COUNT 11.1 10*3/uL (4.8-10.8)
[2018-03-22 11:17] LABS: ACT PARTIAL THROMBO TIME 23.9 SECONDS (20.8-31.5); INTERNATIONAL NORM RATIO 0.9 (2.0-3.5)
[2018-03-22 11:24] LABS: ALBUMIN 3.5 gm/dl (3.1-4.5); ALKALINE PHOSPHATASE 133 U/L (45-117); BUN 23 mg/dl (7-24); CHLORIDE 101 mmol/L (98-107); CREATININE 0.94 mg/dL (0.70-1.30); POTASSIUM 4.3 mmol/L (3.5-5.1); SGOT/AST 9 IU/L (3-35); SGPT/ALT 30 U/L (12-78); SODIUM 134 mmol/L (136-145); TOTAL PROTEIN 7.2 gm/dL (6.4-8.2)
[2018-03-22 11:28] LABS: TROPONIN I < 0.015 ng/ml (<0.045)
[2018-03-22 12:09] LABS: BILIRUBIN NEGATIVE (NEGATIVE); BLOOD NEGATIVE (NEGATIVE); CLARITY CLEAR (CLEAR); COLOR YELLOW (YELLOW); GLUCOSE 3+ (NEGATIVE); KETONE NEGATIVE (NEGATIVE); LEUKO ESTERASE NEGATIVE (NEGATIVE); NITRITE NEGATIVE (NEGATIVE); SPECIFIC GRAVITY 1.015 (1.005-1.030); UROBILINOGEN 0.2 E.U./dl (0.2-1.0)
[2018-03-22 12:19] LABS: EPITHELIAL CELLS 0-2; RBC 0-2 rbc/hpf (0-2); WBC 0-2 wbc/hpf (0-5)
== END 2018-03-22 13:31 | disposition home or self-care (01) ==
LOC: ED 10:25
PROVIDERS: Emergency Medicine
DX: E11.9 Type 2 diabetes mellitus without complications (principal); R11.0 Nausea; R42 Dizziness and giddiness; R53.1 Weakness; R32 Unspecified urinary incontinence; R06.02 Shortness of breath; R07.9 Chest pain, unspecified; I10 Essential (primary) hypertension; E78.5 Hyperlipidemia, unspecified; M19.90 Unspecified osteoarthritis, unspecified site; Z91.14 Patient's other noncompliance with medication regimen; Z88.8 Allergy status to other drugs, medicaments and biological substances; Z88.0 Allergy status to penicillin; Z79.899 Other long term (current) drug therapy; Z79.82 Long term (current) use of aspirin

== ENCOUNTER 2018-04-28 04:41 | Inpatient (IN) | payer OTHER ==
[~2018-04-28] VITALS: Ht 188 cm; Wt 62.4 kg
--- NOTE | ~2018-04-28 | EKG ---
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
[2018-04-28 04:41] VITALS: BP 139/82
[2018-04-28 05:16] LABS: BILIRUBIN NEGATIVE (NEGATIVE); BLOOD NEGATIVE (NEGATIVE); CLARITY CLEAR (CLEAR); COLOR YELLOW (YELLOW); GLUCOSE 3+ (NEGATIVE); KETONE NEGATIVE (NEGATIVE); LEUKO ESTERASE NEGATIVE (NEGATIVE); NITRITE NEGATIVE (NEGATIVE); PH 5.5 (5.0-9.0); UROBILINOGEN 0.2 E.U./dl (0.2-1.0)
[2018-04-28 05:19] LABS: BASO % 0.5 % (0.0-1.0); EOS # 0.4 10*3/uL (0.0-0.4); EOS % 4.4 % (1.0-4.0); HEMATOCRIT 43.3 % (42.0-52.0); HEMOGLOBIN 15.5 g/dl (14.0-18.0); LYMPH # 3.5 10*3/uL (1.3-4.4); MEAN CELL VOLUME 87.8 fl (80.0-94.0); MEAN CORPUSCULAR HGB 31.4 pg (27.0-31.0); MEAN CORPUSCULAR HGB CONC 35.8 g/dl (33.0-37.0); MEAN PLATELET VOLUME 9.5 fl (9.6-12.3); MONO # 0.7 10*3/uL (0.1-1.0); MONO % 7.7 % (3.0-9.0); NEUT # 4.1 10*3/uL (2.3-7.9); NEUT % 47.2 % (47.0-73.0); PLATELET COUNT AUTOMATED 206 10*3/uL (130-400); RED BLOOD COUNT 4.93 10*6/uL (4.50-5.90); RED CELL DISTRI WIDTH 11.9 % (0-14.5); WHITE BLOOD COUNT 8.7 10*3/uL (4.8-10.8)
[2018-04-28 05:24] LABS: URINE AMPHETAMINES < 1000 (1000ng/ml); URINE BARBITURATES < 200 (200ng/ml); URINE BENZODIAZEPINES > 200 (200ng/ml); URINE CANNABINOIDS (THC) < 50 (50ng/ml); URINE COCAINE < 300 (300ng/ml); URINE METHADONE < 300 (300ng/ml); URINE OPIATES < 300 (300ng/ml); URINE PHENCYCLIDINE < 25 (25ng/ml); WBC 0-2 wbc/hpf (0-5)
[2018-04-28 05:29] LABS: INTERNATIONAL NORM RATIO 0.9 (2.0-3.5)
[2018-04-28 05:34] LABS: ALBUMIN 3.1 gm/dl (3.1-4.5); ALKALINE PHOSPHATASE 103 U/L (45-117); BUN 16 mg/dl (7-24); CHLORIDE 106 mmol/L (98-107); CREATININE 0.76 mg/dL (0.70-1.30); POTASSIUM 4.2 mmol/L (3.5-5.1); SGOT/AST 7 IU/L (3-35); SGPT/ALT 15 U/L (12-78); SODIUM 138 mmol/L (136-145); TOTAL PROTEIN 6.9 gm/dL (6.4-8.2)
[2018-04-28 05:40] LABS: ETHYL ALCOHOL < 3.0 mg/dl (<3); TROPONIN I < 0.015 ng/ml (<0.045)
[2018-04-28 06:17] VITALS: BP 121/65
[2018-04-28 08:00] VITALS: BP 143/69
[2018-04-28 12:00] VITALS: BP 133/68
== END 2018-04-28 14:47 | disposition home or self-care (01) | DRG 71 ==
LOC: ED 04:41 → 5E 06:32 → EDHOLD 06:32 → 5E 06:50
PROVIDERS: Emergency Medicine
DX: G93.41 Metabolic encephalopathy (principal); F33.9 Major depressive disorder, recurrent, unspecified; E11.65 Type 2 diabetes mellitus with hyperglycemia; I10 Essential (primary) hypertension; E78.5 Hyperlipidemia, unspecified; G47.8 Other sleep disorders; F11.10 Opioid abuse, uncomplicated; R81 Glycosuria; E78.2 Mixed hyperlipidemia; G89.4 Chronic pain syndrome; M19.90 Unspecified osteoarthritis, unspecified site; E55.9 Vitamin D deficiency, unspecified; Z88.0 Allergy status to penicillin; Z88.8 Allergy status to other drugs, medicaments and biological substances; Z79.82 Long term (current) use of aspirin; Z79.899 Other long term (current) drug therapy; Z79.4 Long term (current) use of insulin; Z95.810 Presence of automatic (implantable) cardiac defibrillator; Z87.81 Personal history of (healed) traumatic fracture; Z79.84 Long term (current) use of oral hypoglycemic drugs; Z72.0 Tobacco use

== ENCOUNTER 2018-07-14 13:04 | Emergency (ER) | payer OTHER ==
[~2018-07-14] VITALS: Ht 182.8 cm; Wt 104.3 kg
--- NOTE | ~2018-07-14 | EKG ---
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
[2018-07-14 13:48] LABS: BASO # 0.1 10*3/uL (0.0-0.1); BASO % 0.6 % (0.0-1.0); EOS # 0.4 10*3/uL (0.0-0.4); EOS % 4.1 % (1.0-4.0); HEMATOCRIT 44.8 % (42.0-52.0); HEMOGLOBIN 16.3 g/dl (14.0-18.0); LYMPH # 2.8 10*3/uL (1.3-4.4); LYMPH % 29.2 % (27.0-41.0); MEAN CELL VOLUME 87.7 fl (80.0-94.0); MEAN CORPUSCULAR HGB 31.9 pg (27.0-31.0); MEAN CORPUSCULAR HGB CONC 36.4 g/dl (33.0-37.0); MEAN PLATELET VOLUME 9.5 fl (9.6-12.3); MONO # 0.7 10*3/uL (0.1-1.0); MONO % 6.9 % (3.0-9.0); NEUT # 5.7 10*3/uL (2.3-7.9); NEUT % 58.6 % (47.0-73.0); PLATELET COUNT AUTOMATED 203 10*3/uL (130-400); RED BLOOD COUNT 5.11 10*6/uL (4.50-5.90); RED CELL DISTRI WIDTH 12.3 % (0-14.5); WHITE BLOOD COUNT 9.7 10*3/uL (4.8-10.8)
[2018-07-14 13:58] LABS: ACT PARTIAL THROMBO TIME 22.9 SECONDS (20.8-31.5)
[2018-07-14 14:03] LABS: ALBUMIN 3.3 gm/dl (3.1-4.5); ALKALINE PHOSPHATASE 115 U/L (45-117); BUN 17 mg/dl (7-24); CHLORIDE 105 mmol/L (98-107); CREATININE 0.93 mg/dL (0.70-1.30); LIPASE 168 U/L (73-393); POTASSIUM 4.4 mmol/L (3.5-5.1); SGOT/AST 10 IU/L (3-35); SGPT/ALT 21 U/L (12-78); SODIUM 138 mmol/L (136-145); TOTAL PROTEIN 7.2 gm/dL (6.4-8.2)
[2018-07-14 14:10] LABS: TROPONIN I < 0.015 ng/ml (<0.045)
== END 2018-07-14 16:15 | disposition left against medical advice (07) ==
LOC: ED 13:04
PROVIDERS: Emergency Medicine
DX: R42 Dizziness and giddiness (principal); R07.9 Chest pain, unspecified; E11.9 Type 2 diabetes mellitus without complications; I10 Essential (primary) hypertension; E78.5 Hyperlipidemia, unspecified; F17.200 Nicotine dependence, unspecified, uncomplicated; Z88.8 Allergy status to other drugs, medicaments and biological substances; Z88.1 Allergy status to other antibiotic agents; Z79.4 Long term (current) use of insulin; Z79.82 Long term (current) use of aspirin; Z79.899 Other long term (current) drug therapy

== ENCOUNTER 2018-08-22 15:52 | Inpatient (IN) | payer OTHER ==
[~2018-08-22] VITALS: Ht 182.8 cm; Wt 110.4 kg
[2018-08-22 15:55] VITALS: BP 146/89
--- NOTE | 2018-08-22 15:56 | NUR ---
PATIENT HAS HAD A COUGH FOR THE PAST MONTH 30 YEARS AGO HE HAD A POSITIVE TB TEST AND DIDN'T FINISH THE ANTIBIOTIC
--- NOTE | 2018-08-22 15:58 | NUR ---
DR LIAO NOTIFIED OF PATIENT'S STATEMENT AND CONDITION
[2018-08-22 16:17] LABS: BASO # 0.1 10*3/uL (0.0-0.1); BASO % 0.6 % (0.0-1.0); EOS # 0.5 10*3/uL (0.0-0.4); EOS % 4.3 % (1.0-4.0); HEMATOCRIT 46.8 % (42.0-52.0); HEMOGLOBIN 17.1 g/dl (14.0-18.0); LYMPH # 3.1 10*3/uL (1.3-4.4); LYMPH % 28.3 % (27.0-41.0); MEAN CELL VOLUME 87.5 fl (80.0-94.0); MEAN CORPUSCULAR HGB CONC 36.5 g/dl (33.0-37.0); MEAN PLATELET VOLUME 9.8 fl (9.6-12.3); MONO # 0.7 10*3/uL (0.1-1.0); MONO % 6.4 % (3.0-9.0); NEUT # 6.4 10*3/uL (2.3-7.9); NEUT % 59.7 % (47.0-73.0); PLATELET COUNT AUTOMATED 213 10*3/uL (130-400); RED BLOOD COUNT 5.35 10*6/uL (4.50-5.90); RED CELL DISTRI WIDTH 12.5 % (0-14.5); WHITE BLOOD COUNT 10.8 10*3/uL (4.8-10.8)
[2018-08-22 16:37] LABS: ALBUMIN 3.5 gm/dl (3.1-4.5); ALKALINE PHOSPHATASE 129 U/L (45-117); BUN 19 mg/dl (7-24); CHLORIDE 101 mmol/L (98-107); CREATININE 1.38 mg/dL (0.70-1.30); LIPASE 177 U/L (73-393); POTASSIUM 4.3 mmol/L (3.5-5.1); SGOT/AST 10 IU/L (3-35); SGPT/ALT 26 U/L (12-78); SODIUM 135 mmol/L (136-145); TOTAL PROTEIN 7.4 gm/dL (6.4-8.2)
[2018-08-22 16:44] LABS: ACT PARTIAL THROMBO TIME 22.2 SECONDS (19.5-32.1); INTERNATIONAL NORM RATIO 0.9 (2.0-3.5)
[2018-08-22 16:47] LABS: TROPONIN I < 0.015 ng/ml (<0.045)
[2018-08-22 18:10] VITALS: BP 130/72
--- NOTE | 2018-08-22 18:14 | NUR ---
REPORT TO PERICO DEMPSEY
--- NOTE | 2018-08-22 18:40 | NUR ---
A 62, admitted to , under the services of ERLIN Babin DO with a diagnosis of ARF,HYPERGLYCEMIA,. Chief complaint is HYPERGLYCEMIA. Patient arrived via bed from ER. Monitor applied. Initial assessment completed. Vital signs taken and recorded. ERLIN BABIN DO notified of admission to the unit. Orders received. See assessment for past medical history, medications and allergies. Patient and/or family oriented to unit. [facility] visitation policy reviewed. Clothing/patient valuable form completed. ROSELYN ESPOSITO
[2018-08-22 18:57] VITALS: BP 138/79
--- NOTE | 2018-08-22 19:06 | NUR ---
LACTIC ACID 2.3 DR BARRIOS NOTIFIED.
[2018-08-22] MEDS ORDERED: QVAR REDIHALE10.6 G1 INH (19:41)
[2018-08-22] MEDS ORDERED: PROAIR HFA8.5 GM INH (19:42)
[2018-08-22] MEDS ORDERED: ASPIRIN CHEWABL81 MG PO (19:42)
[2018-08-22] MEDS ORDERED: MELOXICAM7.5 MG PO (19:42)
[2018-08-22] MEDS ORDERED: LEVEMIR FL100 UNIT/1 SQ (19:44)
[2018-08-22] MEDS ORDERED: HUMALOG100 UNIT/1 SQ (19:44)
--- NOTE | 2018-08-22 19:44 | NUR ---
MED REC UPDATED BY VERIFYING WITH PT PHARMACY
--- NOTE | 2018-08-22 23:00 | NUR ---
PATIENT STATES "HE CAN TAKE INSULIN AT HOME AND IS LEAVING AMA" PATIENT TOOK OFF HEART MONITOR. IV REMOVED. PATIENT SIGNED AMA PAPER AND LEFT THE FLOOR. DOCTOR AND PHARMACEUTICAL PLANT OPERATOR REMOVED.
--- NOTE | 2018-08-22 23:27 | NUR ---
INCIDENT REPORT COMPLETE.
== END 2018-08-22 23:27 | disposition left against medical advice (07) | DRG 637 ==
LOC: ED 15:52 → EDHOLD 17:01 → 5E 17:58
PROVIDERS: Emergency Medicine; ADMIT Internal Medicine
DX: E11.65 Type 2 diabetes mellitus with hyperglycemia (principal); N17.0 Acute kidney failure with tubular necrosis; E44.1 Mild protein-calorie malnutrition; E87.1 Hypo-osmolality and hyponatremia; F33.9 Major depressive disorder, recurrent, unspecified; E87.2 Acidosis; I10 Essential (primary) hypertension; F17.210 Nicotine dependence, cigarettes, uncomplicated; R74.8 Abnormal levels of other serum enzymes; E66.9 Obesity, unspecified; E55.9 Vitamin D deficiency, unspecified; E78.2 Mixed hyperlipidemia; M54.9 Dorsalgia, unspecified; M54.2 Cervicalgia; G89.4 Chronic pain syndrome; E86.0 Dehydration; M19.90 Unspecified osteoarthritis, unspecified site; Z53.21 Procedure and treatment not carried out due to patient leaving prior to being seen by health care provider; Z79.4 Long term (current) use of insulin; Z88.0 Allergy status to penicillin; Z88.8 Allergy status to other drugs, medicaments and biological substances; Z79.82 Long term (current) use of aspirin; Z79.899 Other long term (current) drug therapy; Z87.81 Personal history of (healed) traumatic fracture; Z95.810 Presence of automatic (implantable) cardiac defibrillator; Z90.79 Acquired absence of other genital organ(s); Z71.6 Tobacco abuse counseling; Z68.33 Body mass index [BMI] 33.0-33.9, adult

== ENCOUNTER → 2018-12-01 | Outpatient (CLI) | payer OTHER ==
[~2018-12-01] MED LIST changes: +ASPIRIN CHEWABL81 MG PO; +HUMALOG100 UNIT/1 SQ; +PROAIR HFA8.5 GM INH; +QVAR REDIHALE10.6 G1 INH
== END | disposition home or self-care (01) ==
LOC: RAD 13:36
DX: M25.561 Pain in right knee (principal); M25.571 Pain in right ankle and joints of right foot; M54.5 Low back pain

== ENCOUNTER → 2018-12-26 | Outpatient (CLI) | payer OTHER | END | disposition home or self-care (01) | LOC: RAD 12:18 | DX: M25.871 Other specified joint disorders, right ankle and foot (principal) ==

== ENCOUNTER → 2020-04-11 | Outpatient (CLI) | payer OTHER | END | disposition home or self-care (01) | LOC: RESCLI 01:09 | PROVIDERS: ATTEND Emergency Medicine | DX: I10 Essential (primary) hypertension (principal); E78.49 Other hyperlipidemia; G89.29 Other chronic pain; K21.9 Gastro-esophageal reflux disease without esophagitis; I25.10 Atherosclerotic heart disease of native coronary artery without angina pectoris; E66.9 Obesity, unspecified; E11.9 Type 2 diabetes mellitus without complications; F17.210 Nicotine dependence, cigarettes, uncomplicated; M19.90 Unspecified osteoarthritis, unspecified site; J43.9 Emphysema, unspecified; J30.9 Allergic rhinitis, unspecified; F43.10 Post-traumatic stress disorder, unspecified; E55.9 Vitamin D deficiency, unspecified; R21 Rash and other nonspecific skin eruption; E11.43 Type 2 diabetes mellitus with diabetic autonomic (poly)neuropathy; Z88.0 Allergy status to penicillin; Z95.810 Presence of automatic (implantable) cardiac defibrillator; Z79.899 Other long term (current) drug therapy; Z79.82 Long term (current) use of aspirin; Z98.890 Other specified postprocedural states ==

== ENCOUNTER → 2020-04-18 | Outpatient (CLI) | payer OTHER | END | disposition home or self-care (01) | LOC: COVID19 00:23 | PROVIDERS: ATTEND Surgery | DX: Z01.812 Encounter for preprocedural laboratory examination (principal); Z20.828 Contact with and (suspected) exposure to other viral communicable diseases ==

== ENCOUNTER → 2020-04-24 | Day surgery (SDC) | payer OTHER ==
[~2020-04-24] VITALS: Ht 182.8 cm; Wt 113.4 kg
[2020-04-24 09:25] VITALS: BP 145/80
[2020-04-24 11:23] VITALS: BP 110/66
[2020-04-24 11:35] VITALS: BP 107/71
[2020-04-24 11:53] VITALS: BP 123/81
== END | disposition home or self-care (01) ==
LOC: SDC 04-22 14:00
PROVIDERS: ATTEND Surgery
DX: K59.00 Constipation, unspecified (principal); D12.2 Benign neoplasm of ascending colon; D12.4 Benign neoplasm of descending colon; I11.0 Hypertensive heart disease with heart failure; I50.9 Heart failure, unspecified; I25.2 Old myocardial infarction; J44.9 Chronic obstructive pulmonary disease, unspecified; F32.9 Major depressive disorder, single episode, unspecified; E11.9 Type 2 diabetes mellitus without complications; E78.5 Hyperlipidemia, unspecified; E66.9 Obesity, unspecified; Z68.33 Body mass index [BMI] 33.0-33.9, adult; Z87.891 Personal history of nicotine dependence; Z95.0 Presence of cardiac pacemaker; Z79.899 Other long term (current) drug therapy; Z98.890 Other specified postprocedural states; Z86.010 Personal history of colon polyps; Z80.0 Family history of malignant neoplasm of digestive organs; Z79.84 Long term (current) use of oral hypoglycemic drugs

== ENCOUNTER → 2020-05-14 | Outpatient (CLI) | payer OTHER | END | disposition home or self-care (01) | LOC: RESCLI 04:02 | PROVIDERS: ATTEND Internal Medicine Nephrology | DX: E55.9 Vitamin D deficiency, unspecified (principal); I10 Essential (primary) hypertension; I25.10 Atherosclerotic heart disease of native coronary artery without angina pectoris; E11.9 Type 2 diabetes mellitus without complications; R21 Rash and other nonspecific skin eruption; E11.43 Type 2 diabetes mellitus with diabetic autonomic (poly)neuropathy; E11.65 Type 2 diabetes mellitus with hyperglycemia; E78.2 Mixed hyperlipidemia; R11.2 Nausea with vomiting, unspecified; Z79.899 Other long term (current) drug therapy; Z98.890 Other specified postprocedural states ==

== ENCOUNTER → 2020-06-19 | Outpatient (CLI) | payer OTHER | END | disposition home or self-care (01) | LOC: RESCLI 00:51 | PROVIDERS: ATTEND Internal Medicine | DX: M25.559 Pain in unspecified hip (principal); E55.9 Vitamin D deficiency, unspecified; E78.49 Other hyperlipidemia; I25.10 Atherosclerotic heart disease of native coronary artery without angina pectoris; E11.9 Type 2 diabetes mellitus without complications; J43.9 Emphysema, unspecified; R21 Rash and other nonspecific skin eruption; E11.43 Type 2 diabetes mellitus with diabetic autonomic (poly)neuropathy; E11.65 Type 2 diabetes mellitus with hyperglycemia; R11.2 Nausea with vomiting, unspecified; I10 Essential (primary) hypertension; Z72.0 Tobacco use; Z79.899 Other long term (current) drug therapy; Z98.890 Other specified postprocedural states ==

== ENCOUNTER → 2020-10-02 | Outpatient (CLI) | payer MEDICARE ==
[~2020-10-02] MED LIST changes: +FENOFIBRATE145 M1 PO; -FENOFIBRATE160 MG PO; +GABAPENTIN600 MG PO; +GLIMEPIRIDE4 M1 PO; +JARDIANCE25 MG PO; +LANTUS SOL100 UNIT/1 SC; +METFORMIN XR500 MG PO; +OMEPRAZOLE40 MG PO; +RA FISH OIL 1,1 EAC2 PO; +ROSUVASTATIN CA20 MG PO; +VITAMIN D3125 MCG PO
== END | disposition home or self-care (01) ==
LOC: RESCLI 01:09
PROVIDERS: ATTEND Internal Medicine
DX: M19.042 Primary osteoarthritis, left hand (principal); E11.43 Type 2 diabetes mellitus with diabetic autonomic (poly)neuropathy; I10 Essential (primary) hypertension; E55.9 Vitamin D deficiency, unspecified; R11.2 Nausea with vomiting, unspecified; J43.9 Emphysema, unspecified; I25.10 Atherosclerotic heart disease of native coronary artery without angina pectoris; E78.2 Mixed hyperlipidemia; E11.65 Type 2 diabetes mellitus with hyperglycemia; M65.4 Radial styloid tenosynovitis [de Quervain]; F33.9 Major depressive disorder, recurrent, unspecified; N52.9 Male erectile dysfunction, unspecified; F17.210 Nicotine dependence, cigarettes, uncomplicated; M16.12 Unilateral primary osteoarthritis, left hip; Z79.899 Other long term (current) drug therapy; Z98.890 Other specified postprocedural states; Z88.0 Allergy status to penicillin

== ENCOUNTER → 2020-11-06 | Outpatient (CLI) | payer MEDICARE | END | disposition home or self-care (01) | LOC: RESCLI 03:50 | PROVIDERS: ATTEND Internal Medicine | DX: R63.4 Abnormal weight loss (principal); N52.9 Male erectile dysfunction, unspecified; E11.9 Type 2 diabetes mellitus without complications; E55.9 Vitamin D deficiency, unspecified; R11.2 Nausea with vomiting, unspecified; I25.10 Atherosclerotic heart disease of native coronary artery without angina pectoris; E11.65 Type 2 diabetes mellitus with hyperglycemia; E11.43 Type 2 diabetes mellitus with diabetic autonomic (poly)neuropathy; J43.9 Emphysema, unspecified; E78.2 Mixed hyperlipidemia; Z72.0 Tobacco use; Z71.6 Tobacco abuse counseling; Z79.82 Long term (current) use of aspirin; Z79.899 Other long term (current) drug therapy; Z88.0 Allergy status to penicillin ==

== ENCOUNTER → 2020-11-07 | Outpatient (CLI) | payer MEDICARE | END | disposition home or self-care (01) | LOC: COVID19 12:40 | PROVIDERS: ATTEND Orthopaedic Surgery | DX: Z01.812 Encounter for preprocedural laboratory examination (principal); Z20.822 Contact with and (suspected) exposure to COVID-19 ==

== ENCOUNTER → 2020-11-07 | Outpatient (CLI) | payer MEDICARE ==
[2020-11-07 13:19] LABS: BASO # 0.1 10*3/uL (0.0-0.1); BASO % 0.8 % (0.0-1.0); EOS # 0.4 10*3/uL (0.0-0.4); LYMPH # 2.7 10*3/uL (1.3-4.4); LYMPH % 26.4 % (27.0-41.0); MEAN CELL VOLUME 90.4 fl (80.0-94.0); MEAN CORPUSCULAR HGB CONC 34.3 g/dl (33.0-37.0); MEAN PLATELET VOLUME 9.7 fl (9.6-12.3); MONO # 0.7 10*3/uL (0.1-1.0); MONO % 6.5 % (3.0-9.0); NEUT # 6.4 10*3/uL (2.3-7.9); NEUT % 61.8 % (47.0-73.0); PLATELET COUNT AUTOMATED 247 10*3/uL (130-400); RED BLOOD COUNT 5.09 10*6/uL (4.50-5.90); RED CELL DISTRI WIDTH 12.7 % (0-14.5); WHITE BLOOD COUNT 10.4 10*3/uL (4.8-10.8)
[2020-11-07 13:48] LABS: BUN 20 mg/dl (7-24); CHLORIDE 108 mmol/L (98-107); POTASSIUM 4.2 mmol/L (3.5-5.1); SODIUM 141 mmol/L (136-145)
[2020-11-07 13:56] LABS: CREATININE 0.87 mg/dL (0.70-1.30)
== END | disposition home or self-care (01) ==
LOC: LAB 12:18
PROVIDERS: ATTEND Orthopaedic Surgery
DX: G56.01 Carpal tunnel syndrome, right upper limb (principal)

== ENCOUNTER 2020-12-25 11:12 | Emergency (ER) | payer MEDICARE ==
[~2020-12-25] VITALS: Wt 99.3 kg
== END 2020-12-25 12:59 | disposition home or self-care (01) ==
LOC: ED 11:12
DX: S92.411A Displaced fracture of proximal phalanx of right great toe, initial encounter for closed fracture (principal); I10 Essential (primary) hypertension; E11.9 Type 2 diabetes mellitus without complications; E78.5 Hyperlipidemia, unspecified; F32.9 Major depressive disorder, single episode, unspecified; E66.9 Obesity, unspecified; Z98.890 Other specified postprocedural states; Z95.0 Presence of cardiac pacemaker; Z88.8 Allergy status to other drugs, medicaments and biological substances; Z88.0 Allergy status to penicillin; Z79.899 Other long term (current) drug therapy; Z79.4 Long term (current) use of insulin; X58.XXXA Exposure to other specified factors, initial encounter; Y93.89 Activity, other specified; Y92.89 Other specified places as the place of occurrence of the external cause; Y99.8 Other external cause status

== ENCOUNTER → 2021-01-02 | Outpatient (CLI) | payer MEDICARE | END | disposition home or self-care (01) | LOC: RESCLI 02:03 | PROVIDERS: ATTEND Internal Medicine | DX: S92.414D Nondisplaced fracture of proximal phalanx of right great toe, subsequent encounter for fracture with routine healing (principal); E11.65 Type 2 diabetes mellitus with hyperglycemia; I10 Essential (primary) hypertension; E78.2 Mixed hyperlipidemia; E55.9 Vitamin D deficiency, unspecified; K21.9 Gastro-esophageal reflux disease without esophagitis; E11.42 Type 2 diabetes mellitus with diabetic polyneuropathy; J43.9 Emphysema, unspecified; Z79.4 Long term (current) use of insulin; Z79.899 Other long term (current) drug therapy; Z88.0 Allergy status to penicillin; Z75.0 Medical services not available in home; Z98.890 Other specified postprocedural states; X58.XXXD Exposure to other specified factors, subsequent encounter ==

== ENCOUNTER → 2021-05-13 | Outpatient (CLI) | payer MEDICARE | END | disposition home or self-care (01) | LOC: RESCLI 00:27 | PROVIDERS: ATTEND Internal Medicine Nephrology | DX: E78.2 Mixed hyperlipidemia (principal); E11.65 Type 2 diabetes mellitus with hyperglycemia; J43.9 Emphysema, unspecified; E55.9 Vitamin D deficiency, unspecified; E11.42 Type 2 diabetes mellitus with diabetic polyneuropathy; B88.8 Other specified infestations; Z79.84 Long term (current) use of oral hypoglycemic drugs; Z79.899 Other long term (current) drug therapy; Z88.0 Allergy status to penicillin; Z98.890 Other specified postprocedural states ==

== ENCOUNTER → 2021-06-09 | Outpatient (CLI) | payer MEDICARE ==
[~2021-06-09] MED LIST changes: +CEFTRIAXON2 GM/50 ML IV; +METRONIDAZOLE500 M1 PO; +TRAMADOL HCL50 MG PO
== END | disposition home or self-care (01) ==
LOC: RESCLI 00:20
PROVIDERS: ATTEND Internal Medicine
DX: F51.04 Psychophysiologic insomnia (principal); E78.2 Mixed hyperlipidemia; E11.65 Type 2 diabetes mellitus with hyperglycemia; E55.9 Vitamin D deficiency, unspecified; J43.9 Emphysema, unspecified; E11.42 Type 2 diabetes mellitus with diabetic polyneuropathy; B88.8 Other specified infestations; E78.00 Pure hypercholesterolemia, unspecified; J45.909 Unspecified asthma, uncomplicated; I25.10 Atherosclerotic heart disease of native coronary artery without angina pectoris; Z79.84 Long term (current) use of oral hypoglycemic drugs; Z79.899 Other long term (current) drug therapy; Z79.82 Long term (current) use of aspirin; Z88.0 Allergy status to penicillin

== ENCOUNTER 2021-06-30 16:46 | Inpatient (IN) | payer MEDICARE ==
[~2021-06-30] VITALS: Ht 182.9 cm; Wt 100.7 kg
[~2021-06-30 16:46] MED LIST changes: -CEFTRIAXON2 GM/50 ML IV; -METRONIDAZOLE500 M1 PO; -TRAMADOL HCL50 MG PO
[2021-06-30 16:52] VITALS: BP 148/88
[2021-06-30 18:05] LABS: ALBUMIN 2.7 gm/dl (3.1-4.5); ALKALINE PHOSPHATASE 126 U/L (45-117); BUN 15 mg/dl (7-24); CHLORIDE 103 mmol/L (98-107); CREATININE 0.77 mg/dL (0.70-1.30); POTASSIUM 4.2 mmol/L (3.5-5.1); SGOT/AST 7 IU/L (3-35); SGPT/ALT 22 U/L (12-78); SODIUM 136 mmol/L (136-145); TOTAL PROTEIN 6.8 gm/dL (6.4-8.2)
[2021-06-30 18:07] LABS: ACT PARTIAL THROMBO TIME 25.4 SECONDS (20.0-32.1)
[2021-06-30 18:13] LABS: BASO # 0.1 10*3/uL (0.0-0.1); BASO % 0.5 % (0.0-1.0); EOS # 0.3 10*3/uL (0.0-0.4); EOS % 3.3 % (1.0-4.0); HEMATOCRIT 41.1 % (42.0-52.0); LYMPH # 2.1 10*3/uL (1.3-4.4); MEAN CORPUSCULAR HGB CONC 35.3 g/dl (33.0-37.0); MEAN PLATELET VOLUME 9.4 fl (9.6-12.3); MONO # 0.6 10*3/uL (0.1-1.0); NEUT # 6.1 10*3/uL (2.3-7.9); NEUT % 65.9 % (47.0-73.0); PLATELET COUNT AUTOMATED 281 10*3/uL (130-400); RED BLOOD COUNT 4.67 10*6/uL (4.50-5.90); RED CELL DISTRI WIDTH 11.8 % (0-14.5); WHITE BLOOD COUNT 9.2 10*3/uL (4.8-10.8)
[2021-06-30 20:18] VITALS: BP 132/82
== END 2021-07-01 00:05 | disposition left against medical advice (07) | DRG 603 ==
LOC: ED 16:46 → EDHOLD 17:32
PROVIDERS: Emergency Medicine; ADMIT Family Medicine; ATTEND Family Medicine
DX: L03.115 Cellulitis of right lower limb (principal); F33.9 Major depressive disorder, recurrent, unspecified; E44.0 Moderate protein-calorie malnutrition; E11.65 Type 2 diabetes mellitus with hyperglycemia; I10 Essential (primary) hypertension; F17.210 Nicotine dependence, cigarettes, uncomplicated; Z53.29 Procedure and treatment not carried out because of patient's decision for other reasons; E11.40 Type 2 diabetes mellitus with diabetic neuropathy, unspecified; Z95.810 Presence of automatic (implantable) cardiac defibrillator; Z88.0 Allergy status to penicillin; Z88.8 Allergy status to other drugs, medicaments and biological substances; Z79.51 Long term (current) use of inhaled steroids; Z79.82 Long term (current) use of aspirin; Z79.899 Other long term (current) drug therapy; Z79.4 Long term (current) use of insulin

== ENCOUNTER 2021-07-07 07:01 | Inpatient (IN) | payer MEDICARE ==
[~2021-07-07] VITALS: Ht 182.8 cm; Wt 96.6 kg
[2021-07-07 07:30] VITALS: BP 146/79
[2021-07-07 08:48] LABS: BASO # 0.1 10*3/uL (0.0-0.1); BASO % 0.7 % (0.0-1.0); EOS # 0.3 10*3/uL (0.0-0.4); EOS % 2.9 % (1.0-4.0); HEMATOCRIT 42.5 % (42.0-52.0); LYMPH # 3.1 10*3/uL (1.3-4.4); LYMPH % 29.4 % (27.0-41.0); MEAN CELL VOLUME 88.2 fl (80.0-94.0); MEAN CORPUSCULAR HGB 31.5 pg (27.0-31.0); MEAN CORPUSCULAR HGB CONC 35.8 g/dl (33.0-37.0); MEAN PLATELET VOLUME 9.3 fl (9.6-12.3); MONO # 0.7 10*3/uL (0.1-1.0); MONO % 6.9 % (3.0-9.0); NEUT # 6.2 10*3/uL (2.3-7.9); NEUT % 59.2 % (47.0-73.0); PLATELET COUNT AUTOMATED 246 10*3/uL (130-400); RED BLOOD COUNT 4.82 10*6/uL (4.50-5.90); RED CELL DISTRI WIDTH 11.8 % (0-14.5); WHITE BLOOD COUNT 10.5 10*3/uL (4.8-10.8)
[2021-07-07 09:03] LABS: ALBUMIN 3.1 gm/dl (3.1-4.5); ALKALINE PHOSPHATASE 121 U/L (45-117); BUN 19 mg/dl (7-24); CHLORIDE 104 mmol/L (98-107); POTASSIUM 4.1 mmol/L (3.5-5.1); SGOT/AST 8 IU/L (3-35); SGPT/ALT 23 U/L (12-78); SODIUM 134 mmol/L (136-145)
[2021-07-07 12:00] VITALS: BP 97/61
[2021-07-07 16:00] VITALS: BP 97/61
[2021-07-07 18:55] VITALS: BP 130/72; BP 145/73
[2021-07-07 20:00] VITALS: BP 97/61
[2021-07-08] VITALS (9 sets, daily range): BP systolic 97–142; BP diastolic 61–79
[2021-07-08 06:12] LABS: BUN 19 mg/dl (7-24); CHLORIDE 108 mmol/L (98-107); SODIUM 138 mmol/L (136-145)
[2021-07-08 06:23] LABS: BASO # 0.1 10*3/uL (0.0-0.1); BASO % 0.8 % (0.0-1.0); EOS # 0.4 10*3/uL (0.0-0.4); EOS % 3.5 % (1.0-4.0); HEMATOCRIT 48.3 % (42.0-52.0); LYMPH # 3.2 10*3/uL (1.3-4.4); LYMPH % 30.5 % (27.0-41.0); MEAN CELL VOLUME 91.1 fl (80.0-94.0); MEAN CORPUSCULAR HGB 30.9 pg (27.0-31.0); MEAN PLATELET VOLUME 9.3 fl (9.6-12.3); MONO # 0.6 10*3/uL (0.1-1.0); MONO % 6.1 % (3.0-9.0); NEUT % 58.4 % (47.0-73.0); PLATELET COUNT AUTOMATED 232 10*3/uL (130-400); WHITE BLOOD COUNT 10.3 10*3/uL (4.8-10.8)
[2021-07-08] MEDS ORDERED: TRAMADOL HCL50 MG PO ×2 (11:40→11:44)
[2021-07-09] VITALS: BP 105/57
[2021-07-09 06:36] LABS: BASO # 0.1 10*3/uL (0.0-0.1); BASO % 0.7 % (0.0-1.0); EOS # 0.4 10*3/uL (0.0-0.4); EOS % 3.7 % (1.0-4.0); HEMATOCRIT 42.8 % (42.0-52.0); LYMPH # 3.1 10*3/uL (1.3-4.4); LYMPH % 29.3 % (27.0-41.0); MEAN CELL VOLUME 90.3 fl (80.0-94.0); MEAN CORPUSCULAR HGB 31.2 pg (27.0-31.0); MEAN CORPUSCULAR HGB CONC 34.6 g/dl (33.0-37.0); MEAN PLATELET VOLUME 9.3 fl (9.6-12.3); MONO # 0.8 10*3/uL (0.1-1.0); MONO % 7.7 % (3.0-9.0); NEUT # 6.2 10*3/uL (2.3-7.9); NEUT % 57.9 % (47.0-73.0); PLATELET COUNT AUTOMATED 219 10*3/uL (130-400); RED BLOOD COUNT 4.74 10*6/uL (4.50-5.90); RED CELL DISTRI WIDTH 11.9 % (0-14.5); WHITE BLOOD COUNT 10.7 10*3/uL (4.8-10.8)
[2021-07-09 06:51] LABS: BUN 24 mg/dl (7-24); CHLORIDE 108 mmol/L (98-107); CREATININE 0.84 mg/dL (0.70-1.30); POTASSIUM 4.3 mmol/L (3.5-5.1); SODIUM 139 mmol/L (136-145)
[2021-07-09 08:00] VITALS: BP 112/60
[2021-07-09 11:07] LABS: ACID FAST SPEC PROCESSING Tissue Grinding (.)
[2021-07-09 12:00] VITALS: BP 97/54
[2021-07-09 14:46] VITALS: BP 119/59
[2021-07-09 20:00] VITALS: BP 116/50
[2021-07-10] VITALS: BP 110/60
[2021-07-10 06:53] LABS: BASO # 0.1 10*3/uL (0.0-0.1); BASO % 0.9 % (0.0-1.0); EOS # 0.4 10*3/uL (0.0-0.4); EOS % 4.3 % (1.0-4.0); HEMATOCRIT 41.9 % (42.0-52.0); LYMPH # 3.4 10*3/uL (1.3-4.4); LYMPH % 37.6 % (27.0-41.0); MEAN CELL VOLUME 92.3 fl (80.0-94.0); MEAN CORPUSCULAR HGB 31.3 pg (27.0-31.0); MEAN CORPUSCULAR HGB CONC 33.9 g/dl (33.0-37.0); MEAN PLATELET VOLUME 9.4 fl (9.6-12.3); MONO # 0.6 10*3/uL (0.1-1.0); MONO % 6.4 % (3.0-9.0); NEUT # 4.5 10*3/uL (2.3-7.9); NEUT % 50.1 % (47.0-73.0); PLATELET COUNT AUTOMATED 224 10*3/uL (130-400); RED BLOOD COUNT 4.54 10*6/uL (4.50-5.90); WHITE BLOOD COUNT 8.9 10*3/uL (4.8-10.8)
[2021-07-10 07:08] LABS: ALBUMIN 2.6 gm/dl (3.1-4.5); ALKALINE PHOSPHATASE 96 U/L (45-117); BUN 26 mg/dl (7-24); CHLORIDE 109 mmol/L (98-107); CREATININE 0.91 mg/dL (0.70-1.30); POTASSIUM 3.9 mmol/L (3.5-5.1); SGOT/AST 10 IU/L (3-35); SGPT/ALT 23 U/L (12-78); SODIUM 140 mmol/L (136-145); TOTAL PROTEIN 6.3 gm/dL (6.4-8.2)
[2021-07-10 08:00] VITALS: BP 121/67
[2021-07-10 12:00] VITALS: BP 107/64
[2021-07-10] MEDS ORDERED: METRONIDAZOLE500 M1 PO (15:38)
[2021-07-10] MEDS ORDERED: CEFTRIAXON2 GM/50 ML IV ×2 (15:38)
[2021-07-10 16:00] VITALS: BP 116/62
[2021-07-10 20:00] VITALS: BP 125/67
[2021-07-11] VITALS: BP 112/72
[2021-07-11 08:00] VITALS: BP 124/61
[2021-07-11 12:00] VITALS: BP 120/44
[2021-07-11 16:00] VITALS: BP 113/61
[2021-07-11 20:00] VITALS: BP 118/59
[2021-07-12] VITALS: BP 115/62
[2021-07-12 08:00] VITALS: BP 123/73
[2021-07-12] MEDS ORDERED: CEFTRIAXON2 GM/50 ML IV ×3 (11:23→11:33)
[2021-07-12 12:00] VITALS: BP 135/66
[2021-07-12 16:00] VITALS: BP 116/71
[2021-07-12 20:00] VITALS: BP 104/54
[2021-07-13] VITALS: BP 108/55
[2021-07-13 06:30] LABS: ALBUMIN 2.6 gm/dl (3.1-4.5); ALKALINE PHOSPHATASE 81 U/L (45-117); BASO # 0.1 10*3/uL (0.0-0.1); BASO % 0.7 % (0.0-1.0); BUN 16 mg/dl (7-24); CHLORIDE 106 mmol/L (98-107); CREATININE 0.87 mg/dL (0.70-1.30); EOS # 0.4 10*3/uL (0.0-0.4); HEMATOCRIT 42.5 % (42.0-52.0); LYMPH # 2.9 10*3/uL (1.3-4.4); MEAN CELL VOLUME 91.8 fl (80.0-94.0); MEAN CORPUSCULAR HGB 31.1 pg (27.0-31.0); MEAN CORPUSCULAR HGB CONC 33.9 g/dl (33.0-37.0); MEAN PLATELET VOLUME 9.7 fl (9.6-12.3); MONO # 0.5 10*3/uL (0.1-1.0); MONO % 7.3 % (3.0-9.0); NEUT # 3.3 10*3/uL (2.3-7.9); NEUT % 45.6 % (47.0-73.0); PLATELET COUNT AUTOMATED 212 10*3/uL (130-400); POTASSIUM 4.2 mmol/L (3.5-5.1); RED BLOOD COUNT 4.63 10*6/uL (4.50-5.90); RED CELL DISTRI WIDTH 11.9 % (0-14.5); SGOT/AST 10 IU/L (3-35); SGPT/ALT 20 U/L (12-78); SODIUM 138 mmol/L (136-145); TOTAL PROTEIN 6.3 gm/dL (6.4-8.2); WHITE BLOOD COUNT 7.3 10*3/uL (4.8-10.8)
[2021-07-13 08:00] VITALS: BP 134/73
[2021-07-13 12:00] VITALS: BP 128/72
[2021-07-13 16:00] VITALS: BP 131/78
[2021-07-13 20:00] VITALS: BP 117/68
[2021-07-14] VITALS: BP 119/66
[2021-07-14 07:30] VITALS: BP 122/62
[2021-07-14 12:00] VITALS: BP 121/63
[2021-07-14 16:00] VITALS: BP 134/84
[2021-07-14 20:00] VITALS: BP 120/57
[2021-07-15] VITALS: BP 113/59
[2021-07-15 06:54] LABS: BUN 17 mg/dl (7-24); CHLORIDE 106 mmol/L (98-107); SODIUM 140 mmol/L (136-145)
[2021-07-15 06:57] LABS: CREATININE 0.89 mg/dL (0.70-1.30)
[2021-07-15 08:00] VITALS: BP 122/63
[2021-07-15 12:00] VITALS: BP 111/63
== END 2021-07-15 15:40 | DRG 629 ==
LOC: ED 07:01 → 5E 08:23 → EDHOLD 08:23 → 5E 07-08 10:02
PROVIDERS: Emergency Medicine; Internal Medicine; Podiatrist; Registered Nurse; Student in an Organized Health Care Education/Training Program; ADMIT Internal Medicine; ATTEND Internal Medicine
PROC: 0QBN0ZX Excision of Right Metatarsal, Open Approach, Diagnostic (ICD-10-PCS; principal; 2021-07-08)
PROC: 2W1SX6Z Compression of Right Foot using Pressure Dressing (ICD-10-PCS; 2021-07-08)
PROC: 02HV33Z Insertion of Infusion Device into Superior Vena Cava, Percutaneous Approach (ICD-10-PCS; 2021-07-13)
DX: E11.69 Type 2 diabetes mellitus with other specified complication (principal); L03.115 Cellulitis of right lower limb; M86.171 Other acute osteomyelitis, right ankle and foot; E44.0 Moderate protein-calorie malnutrition; E87.1 Hypo-osmolality and hyponatremia; F33.9 Major depressive disorder, recurrent, unspecified; L02.611 Cutaneous abscess of right foot; E11.621 Type 2 diabetes mellitus with foot ulcer; Z20.822 Contact with and (suspected) exposure to COVID-19; Z79.4 Long term (current) use of insulin; S92.912A Unspecified fracture of left toe(s), initial encounter for closed fracture; E11.65 Type 2 diabetes mellitus with hyperglycemia; I10 Essential (primary) hypertension; E11.40 Type 2 diabetes mellitus with diabetic neuropathy, unspecified; E11.51 Type 2 diabetes mellitus with diabetic peripheral angiopathy without gangrene; B96.1 Klebsiella pneumoniae [K. pneumoniae] as the cause of diseases classified elsewhere; L97.519 Non-pressure chronic ulcer of other part of right foot with unspecified severity; G89.18 Other acute postprocedural pain; G89.4 Chronic pain syndrome; E78.5 Hyperlipidemia, unspecified; E55.9 Vitamin D deficiency, unspecified; F17.210 Nicotine dependence, cigarettes, uncomplicated; Z68.28 Body mass index [BMI] 28.0-28.9, adult; Z71.6 Tobacco abuse counseling; Z88.0 Allergy status to penicillin; Z79.899 Other long term (current) drug therapy; Z79.51 Long term (current) use of inhaled steroids; Z79.82 Long term (current) use of aspirin; Z88.8 Allergy status to other drugs, medicaments and biological substances; Y93.89 Activity, other specified; Y92.89 Other specified places as the place of occurrence of the external cause; Y99.8 Other external cause status

== ENCOUNTER → 2021-07-24 | Outpatient (CLI) | payer MEDICARE ==
[~2021-07-24] MED LIST changes: +CEFTRIAXON2 GM/50 ML IV; +METRONIDAZOLE500 M1 PO; +TRAMADOL HCL50 MG PO
[2021-07-24 11:31] LABS: BASO # 0.1 10*3/uL (0.0-0.1); EOS # 0.7 10*3/uL (0.0-0.4); EOS % 6.8 % (1.0-4.0); LYMPH # 2.6 10*3/uL (1.3-4.4); LYMPH % 24.8 % (27.0-41.0); MEAN CELL VOLUME 90.2 fl (80.0-94.0); MEAN CORPUSCULAR HGB 31.5 pg (27.0-31.0); MEAN CORPUSCULAR HGB CONC 34.9 g/dl (33.0-37.0); MEAN PLATELET VOLUME 10.1 fl (9.6-12.3); MONO # 0.7 10*3/uL (0.1-1.0); MONO % 6.2 % (3.0-9.0); NEUT # 6.4 10*3/uL (2.3-7.9); NEUT % 60.9 % (47.0-73.0); PLATELET COUNT AUTOMATED 194 10*3/uL (130-400); RED BLOOD COUNT 5.21 10*6/uL (4.50-5.90); RED CELL DISTRI WIDTH 12.2 % (0-14.5); WHITE BLOOD COUNT 10.5 10*3/uL (4.8-10.8)
[2021-07-24 11:54] LABS: ALBUMIN 3.7 gm/dl (3.1-4.5); ALKALINE PHOSPHATASE 86 U/L (45-117); BUN 24 mg/dl (7-24); CHLORIDE 103 mmol/L (98-107); CREATININE 1.02 mg/dL (0.70-1.30); POTASSIUM 4.6 mmol/L (3.5-5.1); SGOT/AST 16 IU/L (3-35); SGPT/ALT 25 U/L (12-78); SODIUM 137 mmol/L (136-145); TOTAL PROTEIN 7.9 gm/dL (6.4-8.2)
== END | disposition home or self-care (01) ==
LOC: RESCLI 06:47
PROVIDERS: Student in an Organized Health Care Education/Training Program; ATTEND Family Medicine
DX: M86.271 Subacute osteomyelitis, right ankle and foot (principal); E78.2 Mixed hyperlipidemia; E11.65 Type 2 diabetes mellitus with hyperglycemia; E55.9 Vitamin D deficiency, unspecified; E11.42 Type 2 diabetes mellitus with diabetic polyneuropathy; B88.8 Other specified infestations; J43.9 Emphysema, unspecified; F51.04 Psychophysiologic insomnia; Z79.82 Long term (current) use of aspirin; Z79.4 Long term (current) use of insulin; Z79.899 Other long term (current) drug therapy

== ENCOUNTER 2021-12-12 11:04 | Emergency (ER) | payer MEDICARE ==
[~2021-12-12] VITALS: Ht 182.8 cm; Wt 94.5 kg
[2021-12-12] MEDS ORDERED: TYLENOL325 M2 PO (11:18)
[2021-12-12 11:56] LABS: BASO % 0.3 % (0.0-1.0); EOS # 0.3 10*3/uL (0.0-0.4); HEMATOCRIT 37.3 % (42.0-52.0); LYMPH # 2.1 10*3/uL (1.3-4.4); LYMPH % 16.8 % (27.0-41.0); MEAN CELL VOLUME 85.9 fl (80.0-94.0); MEAN CORPUSCULAR HGB 30.9 pg (27.0-31.0); MEAN CORPUSCULAR HGB CONC 35.9 g/dl (33.0-37.0); MEAN PLATELET VOLUME 9.3 fl (9.6-12.3); MONO # 1.1 10*3/uL (0.1-1.0); MONO % 8.3 % (3.0-9.0); NEUT # 9.1 10*3/uL (2.3-7.9); PLATELET COUNT AUTOMATED 263 10*3/uL (130-400); RED BLOOD COUNT 4.34 10*6/uL (4.50-5.90); RED CELL DISTRI WIDTH 11.4 % (0-14.5); WHITE BLOOD COUNT 12.7 10*3/uL (4.8-10.8)
[2021-12-12 12:07] LABS: ACT PARTIAL THROMBO TIME 28.9 SECONDS (20.0-32.1)
[2021-12-12 12:10] LABS: ALKALINE PHOSPHATASE 131 U/L (45-117); BUN 14 mg/dl (7-24); CHLORIDE 101 mmol/L (98-107); CREATININE 0.94 mg/dL (0.70-1.30); SGOT/AST 4 IU/L (3-35); SGPT/ALT 13 U/L (12-78); SODIUM 133 mmol/L (136-145); TOTAL PROTEIN 6.7 gm/dL (6.4-8.2)
== END 2021-12-12 17:30 | disposition short-term general hospital (02) ==
LOC: ED 11:04
PROVIDERS: Emergency Medicine
DX: E11.621 Type 2 diabetes mellitus with foot ulcer (principal); L08.9 Local infection of the skin and subcutaneous tissue, unspecified; Z88.0 Allergy status to penicillin; Z88.8 Allergy status to other drugs, medicaments and biological substances; Z87.891 Personal history of nicotine dependence

== ENCOUNTER → 2022-01-14 | Outpatient (CLI) | payer MEDICARE ==
[~2022-01-14] MED LIST changes: +TYLENOL325 M2 PO
== END | disposition home or self-care (01) ==
LOC: RESCLI 03:29
PROVIDERS: ATTEND Internal Medicine
DX: L03.031 Cellulitis of right toe (principal); I11.9 Hypertensive heart disease without heart failure; I25.10 Atherosclerotic heart disease of native coronary artery without angina pectoris; Z79.899 Other long term (current) drug therapy; Z79.82 Long term (current) use of aspirin

== ENCOUNTER 2022-02-12 19:00 | Inpatient (IN) | payer MEDICARE ==
[~2022-02-12] VITALS: Ht 182.8 cm; Wt 98.5 kg
[2022-02-12 19:11] VITALS: BP 140/68
[2022-02-12 20:06] LABS: BASO # 0.1 10*3/uL (0.0-0.1); BASO % 0.5 % (0.0-1.0); EOS # 0.6 10*3/uL (0.0-0.4); EOS % 4.8 % (1.0-4.0); HEMATOCRIT 38.3 % (42.0-52.0); LYMPH # 1.7 10*3/uL (1.3-4.4); LYMPH % 14.8 % (27.0-41.0); MEAN CORPUSCULAR HGB 30.2 pg (27.0-31.0); MEAN CORPUSCULAR HGB CONC 33.2 g/dl (33.0-37.0); MEAN PLATELET VOLUME 8.7 fl (9.6-12.3); MONO # 0.8 10*3/uL (0.1-1.0); MONO % 6.7 % (3.0-9.0); NEUT # 8.3 10*3/uL (2.3-7.9); NEUT % 72.7 % (47.0-73.0); PLATELET COUNT AUTOMATED 357 10*3/uL (130-400); RED BLOOD COUNT 4.21 10*6/uL (4.50-5.90); RED CELL DISTRI WIDTH 12.3 % (0-14.5); WHITE BLOOD COUNT 11.4 10*3/uL (4.8-10.8)
[2022-02-12 20:26] LABS: ACT PARTIAL THROMBO TIME 28.5 SECONDS (20.0-32.1); INTERNATIONAL NORM RATIO 1.1 (2.0-3.5)
[2022-02-12 20:30] LABS: ALKALINE PHOSPHATASE 169 U/L (45-117); BUN 22 mg/dl (7-24); CHLORIDE 107 mmol/L (98-107); CREATININE 0.84 mg/dL (0.70-1.30); SGOT/AST 11 IU/L (3-35); SGPT/ALT 11 U/L (12-78); SODIUM 141 mmol/L (136-145)
[2022-02-12 21:39] VITALS: BP 123/81
[2022-02-12 22:19] LABS: BILIRUBIN Negative (Negative); BLOOD Negative (Negative); CLARITY Clear (Clear); COLOR Dark Yellow (Yellow); GLUCOSE 1+ (Negative); KETONE Trace (Negative); LEUKO ESTERASE Trace (Negative); NITRITE Negative (Negative); SPECIFIC GRAVITY >= 1.030 (1.001-1.030)
[2022-02-12 22:47] LABS: BACTERIA 1+; MUCOUS 1+
[2022-02-13] VITALS: BP 128/80
[2022-02-13 00:10] VITALS: BP 128/80
[2022-02-13] MEDS ORDERED: LANTUS SOL100 UNIT/1 SC (04:29)
[2022-02-13 06:10] LABS: BASO % 0.3 % (0.0-1.0); EOS # 0.5 10*3/uL (0.0-0.4); EOS % 5.4 % (1.0-4.0); HEMATOCRIT 38.5 % (42.0-52.0); LYMPH # 1.7 10*3/uL (1.3-4.4); LYMPH % 16.9 % (27.0-41.0); MEAN CORPUSCULAR HGB 30.3 pg (27.0-31.0); MEAN CORPUSCULAR HGB CONC 33.2 g/dl (33.0-37.0); MEAN PLATELET VOLUME 8.8 fl (9.6-12.3); MONO # 0.6 10*3/uL (0.1-1.0); MONO % 6.4 % (3.0-9.0); NEUT % 70.4 % (47.0-73.0); PLATELET COUNT AUTOMATED 344 10*3/uL (130-400); RED BLOOD COUNT 4.23 10*6/uL (4.50-5.90); RED CELL DISTRI WIDTH 12.2 % (0-14.5); WHITE BLOOD COUNT 9.9 10*3/uL (4.8-10.8)
[2022-02-13 06:12] LABS: ALKALINE PHOSPHATASE 161 U/L (45-117); BUN 20 mg/dl (7-24); CHLORIDE 109 mmol/L (98-107); CREATININE 0.67 mg/dL (0.70-1.30); POTASSIUM 4.1 mmol/L (3.5-5.1); SGOT/AST 9 IU/L (3-35); SGPT/ALT 10 U/L (12-78); SODIUM 142 mmol/L (136-145); TOTAL PROTEIN 6.4 gm/dL (6.4-8.2)
[2022-02-13 08:00] VITALS: BP 143/67
[2022-02-13 12:00] VITALS: BP 132/58
[2022-02-13 16:00] VITALS: BP 122/50
[2022-02-13 20:00] VITALS: BP 143/58
[2022-02-14] VITALS (10 sets, daily range): BP systolic 113–138; BP diastolic 60–74
[2022-02-15] VITALS: BP 145/71
[2022-02-15 08:00] VITALS: BP 134/55
[2022-02-15 12:00] VITALS: BP 143/72
[2022-02-15 14:06] LABS: ACID FAST SPEC PROCESSING Tissue Grinding (.)
[2022-02-15 14:06] LABS: ACID FAST SPEC PROCESSING Tissue Grinding (.)
[2022-02-15 16:00] VITALS: BP 160/59
[2022-02-15] MEDS ORDERED: LEVOFLOXACIN750 M2 PO (17:59)
[2022-02-15] MEDS ORDERED: METRONIDAZOLE500 M1 PO (17:59)
[2022-02-15 20:00] VITALS: BP 144/69
[2022-02-16] VITALS: BP 164/73
[2022-02-16 06:21] LABS: BUN 14 mg/dl (7-24); CHLORIDE 104 mmol/L (98-107); POTASSIUM 4.1 mmol/L (3.5-5.1); SODIUM 136 mmol/L (136-145)
[2022-02-16 06:24] LABS: CREATININE 0.63 mg/dL (0.70-1.30)
[2022-02-16 06:33] LABS: BASO % 0.5 % (0.0-1.0); EOS # 0.5 10*3/uL (0.0-0.4); EOS % 5.6 % (1.0-4.0); HEMATOCRIT 35.7 % (42.0-52.0); LYMPH # 2.3 10*3/uL (1.3-4.4); LYMPH % 27.1 % (27.0-41.0); MEAN CORPUSCULAR HGB 30.7 pg (27.0-31.0); MEAN CORPUSCULAR HGB CONC 34.5 g/dl (33.0-37.0); MEAN PLATELET VOLUME 8.8 fl (9.6-12.3); MONO # 0.6 10*3/uL (0.1-1.0); MONO % 7.1 % (3.0-9.0); NEUT # 4.9 10*3/uL (2.3-7.9); NEUT % 58.7 % (47.0-73.0); PLATELET COUNT AUTOMATED 336 10*3/uL (130-400); RED BLOOD COUNT 4.01 10*6/uL (4.50-5.90); RED CELL DISTRI WIDTH 12.1 % (0-14.5); WHITE BLOOD COUNT 8.4 10*3/uL (4.8-10.8)
[2022-02-16 08:00] VITALS: BP 144/65
[2022-02-16 12:00] VITALS: BP 123/66
[2022-02-16 16:00] VITALS: BP 153/71
[2022-02-16 20:00] VITALS: BP 157/74
[2022-02-17] VITALS: BP 170/76
[2022-02-17 07:54] VITALS: BP 143/68
[2022-02-17 11:21] VITALS: BP 120/62
[2022-02-17] MEDS ORDERED: LANTUS SOL100 UNIT/1 SC (13:17)
[2022-02-17] MEDS ORDERED: LISINOPRIL2.5 MG PO (13:17)
[2022-02-17] MEDS ORDERED: HYDROCODONE-AC1 EAC1 PO (13:18)
[2022-02-23 15:06] LABS: ANAEROBE RESULT 1 Bacteroides ovatus (.)
[2022-02-23 15:06] LABS: ANAEROBE RESULT 1 Bacteroides ovatus (.)
[2022-02-23 15:06] LABS: ANAEROBE RESULT 1 Bacteroides ovatus (.)
== END 2022-02-17 14:46 | disposition home health service (06) | DRG 474 ==
LOC: ED 19:00 → 5E 22:40 → EDHOLD 22:40 → 5E 23:08
PROVIDERS: Internal Medicine; Nurse Practitioner Family; Ophthalmology; Podiatrist; ADMIT Internal Medicine; ATTEND Internal Medicine
PROC: 0Y6M0ZC Detachment at Right Foot, Partial 3rd Ray, Open Approach (ICD-10-PCS; principal; 2022-02-14)
PROC: 0Y9M0ZZ Drainage of Right Foot, Open Approach (ICD-10-PCS; 2022-02-14)
PROC: 2W1SX6Z Compression of Right Foot using Pressure Dressing (ICD-10-PCS; 2022-02-14)
DX: M86.171 Other acute osteomyelitis, right ankle and foot (principal); E43 Unspecified severe protein-calorie malnutrition; L03.115 Cellulitis of right lower limb; F33.9 Major depressive disorder, recurrent, unspecified; L02.611 Cutaneous abscess of right foot; E11.52 Type 2 diabetes mellitus with diabetic peripheral angiopathy with gangrene; I96 Gangrene, not elsewhere classified; E11.69 Type 2 diabetes mellitus with other specified complication; Z20.822 Contact with and (suspected) exposure to COVID-19; E11.65 Type 2 diabetes mellitus with hyperglycemia; D64.9 Anemia, unspecified; D70.9 Neutropenia, unspecified; E87.8 Other disorders of electrolyte and fluid balance, not elsewhere classified; I10 Essential (primary) hypertension; E78.5 Hyperlipidemia, unspecified; G89.4 Chronic pain syndrome; M19.90 Unspecified osteoarthritis, unspecified site; B35.1 Tinea unguium; F17.210 Nicotine dependence, cigarettes, uncomplicated; E11.621 Type 2 diabetes mellitus with foot ulcer; Z88.0 Allergy status to penicillin; Z88.8 Allergy status to other drugs, medicaments and biological substances; Z95.810 Presence of automatic (implantable) cardiac defibrillator; Z90.49 Acquired absence of other specified parts of digestive tract; Z79.4 Long term (current) use of insulin; Z71.6 Tobacco abuse counseling; Z68.29 Body mass index [BMI] 29.0-29.9, adult

== ENCOUNTER → 2022-02-22 | Outpatient (CLI) | payer MEDICARE ==
[~2022-02-22] MED LIST changes: +HYDROCODONE-AC1 EAC1 PO; +LEVOFLOXACIN750 M2 PO; +LISINOPRIL2.5 MG PO
== END ==
LOC: WOUNDCARE 05:35
PROVIDERS: ATTEND Podiatrist Foot & Ankle Surgery
DX: T81.89XA Other complications of procedures, not elsewhere classified, initial encounter (principal); L84 Corns and callosities; R60.9 Edema, unspecified; E11.69 Type 2 diabetes mellitus with other specified complication; M86.171 Other acute osteomyelitis, right ankle and foot; E11.52 Type 2 diabetes mellitus with diabetic peripheral angiopathy with gangrene; I96 Gangrene, not elsewhere classified; E11.40 Type 2 diabetes mellitus with diabetic neuropathy, unspecified; I10 Essential (primary) hypertension; M19.90 Unspecified osteoarthritis, unspecified site; F17.200 Nicotine dependence, unspecified, uncomplicated; F11.90 Opioid use, unspecified, uncomplicated; F32.9 Major depressive disorder, single episode, unspecified; Z79.4 Long term (current) use of insulin; Y92.238 Other place in hospital as the place of occurrence of the external cause; Y83.8 Other surgical procedures as the cause of abnormal reaction of the patient, or of later complication, without mention of misadventure at the time of the procedure

== ENCOUNTER → 2022-03-08 | Outpatient (CLI) | payer MEDICARE | LOC: WOUNDCARE 05:19 | PROVIDERS: ATTEND Podiatrist Foot & Ankle Surgery | DX: Z53.21 Procedure and treatment not carried out due to patient leaving prior to being seen by health care provider (principal) ==

== ENCOUNTER → 2022-03-09 | Outpatient (CLI) | payer MEDICARE | END | disposition home or self-care (01) | LOC: RESCLI 14:28 | PROVIDERS: ATTEND Student in an Organized Health Care Education/Training Program | DX: E11.9 Type 2 diabetes mellitus without complications (principal); M79.604 Pain in right leg; Z79.899 Other long term (current) drug therapy; Z79.82 Long term (current) use of aspirin; Z79.01 Long term (current) use of anticoagulants ==

== ENCOUNTER → 2022-03-22 | Outpatient (CLI) | payer MEDICARE | END | disposition home or self-care (01) | LOC: WOUNDCARE 01:20 | PROVIDERS: ATTEND Podiatrist Foot & Ankle Surgery | DX: T81.89XD Other complications of procedures, not elsewhere classified, subsequent encounter (principal); L97.512 Non-pressure chronic ulcer of other part of right foot with fat layer exposed; M86.171 Other acute osteomyelitis, right ankle and foot; I96 Gangrene, not elsewhere classified; R60.9 Edema, unspecified; I87.2 Venous insufficiency (chronic) (peripheral); E11.40 Type 2 diabetes mellitus with diabetic neuropathy, unspecified; I10 Essential (primary) hypertension; E78.5 Hyperlipidemia, unspecified; M19.90 Unspecified osteoarthritis, unspecified site; M79.604 Pain in right leg; F17.200 Nicotine dependence, unspecified, uncomplicated; F32.9 Major depressive disorder, single episode, unspecified; Y83.8 Other surgical procedures as the cause of abnormal reaction of the patient, or of later complication, without mention of misadventure at the time of the procedure ==

== ENCOUNTER → 2022-03-29 | Outpatient (CLI) | payer MEDICARE | END | disposition home or self-care (01) | LOC: WOUNDCARE 02:28 | PROVIDERS: ATTEND Podiatrist Foot & Ankle Surgery | DX: T87.89 Other complications of amputation stump (principal); L97.512 Non-pressure chronic ulcer of other part of right foot with fat layer exposed; M86.171 Other acute osteomyelitis, right ankle and foot; E11.52 Type 2 diabetes mellitus with diabetic peripheral angiopathy with gangrene; I96 Gangrene, not elsewhere classified; R60.9 Edema, unspecified; I87.2 Venous insufficiency (chronic) (peripheral); E11.40 Type 2 diabetes mellitus with diabetic neuropathy, unspecified; I10 Essential (primary) hypertension; E78.5 Hyperlipidemia, unspecified; M19.90 Unspecified osteoarthritis, unspecified site; M79.604 Pain in right leg; F17.200 Nicotine dependence, unspecified, uncomplicated; F32.9 Major depressive disorder, single episode, unspecified; Y83.5 Amputation of limb(s) as the cause of abnormal reaction of the patient, or of later complication, without mention of misadventure at the time of the procedure ==

== ENCOUNTER → 2022-04-05 | Outpatient (CLI) | payer MEDICARE | LOC: WOUNDCARE 03:46 | PROVIDERS: ATTEND Podiatrist Foot & Ankle Surgery | DX: T81.89XD Other complications of procedures, not elsewhere classified, subsequent encounter (principal); L97.512 Non-pressure chronic ulcer of other part of right foot with fat layer exposed; M86.171 Other acute osteomyelitis, right ankle and foot; E11.40 Type 2 diabetes mellitus with diabetic neuropathy, unspecified; E11.52 Type 2 diabetes mellitus with diabetic peripheral angiopathy with gangrene; I96 Gangrene, not elsewhere classified; R60.9 Edema, unspecified; E78.5 Hyperlipidemia, unspecified; I87.2 Venous insufficiency (chronic) (peripheral); I10 Essential (primary) hypertension; M79.604 Pain in right leg; M19.90 Unspecified osteoarthritis, unspecified site; F17.200 Nicotine dependence, unspecified, uncomplicated; F11.90 Opioid use, unspecified, uncomplicated; F32.9 Major depressive disorder, single episode, unspecified; Y83.8 Other surgical procedures as the cause of abnormal reaction of the patient, or of later complication, without mention of misadventure at the time of the procedure ==

== ENCOUNTER → 2022-04-26 | Outpatient (CLI) | payer MEDICARE | LOC: WOUNDCARE 04:42 | PROVIDERS: ATTEND Podiatrist Foot & Ankle Surgery | DX: T81.89XD Other complications of procedures, not elsewhere classified, subsequent encounter (principal); L97.512 Non-pressure chronic ulcer of other part of right foot with fat layer exposed; M86.171 Other acute osteomyelitis, right ankle and foot; I96 Gangrene, not elsewhere classified; R60.9 Edema, unspecified; E11.40 Type 2 diabetes mellitus with diabetic neuropathy, unspecified; E78.5 Hyperlipidemia, unspecified; I87.2 Venous insufficiency (chronic) (peripheral); I10 Essential (primary) hypertension; M79.604 Pain in right leg; M19.90 Unspecified osteoarthritis, unspecified site; F32.9 Major depressive disorder, single episode, unspecified; F17.200 Nicotine dependence, unspecified, uncomplicated; Z95.810 Presence of automatic (implantable) cardiac defibrillator; Y83.8 Other surgical procedures as the cause of abnormal reaction of the patient, or of later complication, without mention of misadventure at the time of the procedure ==

== ENCOUNTER 2022-06-18 14:25 | Emergency (ER) | payer MEDICARE ==
[~2022-06-18] VITALS: Ht 182.8 cm; Wt 99.8 kg
== END 2022-06-18 14:50 | disposition left against medical advice (07) ==
LOC: ED 14:25
DX: Z53.21 Procedure and treatment not carried out due to patient leaving prior to being seen by health care provider (principal)

== ENCOUNTER → 2022-06-18 | Outpatient (CLI) | payer MEDICARE | END | disposition home or self-care (01) | LOC: RESCLI 01:08 | PROVIDERS: ATTEND Internal Medicine | DX: R06.82 Tachypnea, not elsewhere classified (principal); R53.83 Other fatigue; J45.909 Unspecified asthma, uncomplicated; E78.5 Hyperlipidemia, unspecified; I10 Essential (primary) hypertension; E11.9 Type 2 diabetes mellitus without complications; F17.200 Nicotine dependence, unspecified, uncomplicated; M19.90 Unspecified osteoarthritis, unspecified site; I25.10 Atherosclerotic heart disease of native coronary artery without angina pectoris; Z98.890 Other specified postprocedural states; Z82.49 Family history of ischemic heart disease and other diseases of the circulatory system; Z88.0 Allergy status to penicillin; Z79.84 Long term (current) use of oral hypoglycemic drugs; Z79.82 Long term (current) use of aspirin; Z79.899 Other long term (current) drug therapy ==

== ENCOUNTER → 2022-10-11 | Outpatient (CLI) | payer OTHER, MEDICAID | END | disposition home or self-care (01) | LOC: RESCLI 01:18 | PROVIDERS: ATTEND Internal Medicine | DX: I25.10 Atherosclerotic heart disease of native coronary artery without angina pectoris (principal); I10 Essential (primary) hypertension; E11.9 Type 2 diabetes mellitus without complications; E78.5 Hyperlipidemia, unspecified; E55.9 Vitamin D deficiency, unspecified; J43.9 Emphysema, unspecified; K21.9 Gastro-esophageal reflux disease without esophagitis; F17.200 Nicotine dependence, unspecified, uncomplicated; G62.9 Polyneuropathy, unspecified; H53.8 Other visual disturbances; Z89.429 Acquired absence of other toe(s), unspecified side; Z88.0 Allergy status to penicillin; Z98.890 Other specified postprocedural states; Z82.49 Family history of ischemic heart disease and other diseases of the circulatory system; Z79.4 Long term (current) use of insulin; Z79.82 Long term (current) use of aspirin; Z79.899 Other long term (current) drug therapy ==

== ENCOUNTER → 2023-01-03 | Outpatient (CLI) | payer OTHER ==
[2023-01-03 13:01] LABS: BASO # 0.1 10*3/uL (0.0-0.1); BASO % 0.8 % (0.0-1.0); EOS # 0.5 10*3/uL (0.0-0.4); EOS % 3.8 % (1.0-4.0); LYMPH # 3.1 10*3/uL (1.3-4.4); LYMPH % 24.5 % (27.0-41.0); MEAN CELL VOLUME 87.8 fl (80.0-94.0); MEAN CORPUSCULAR HGB 31.7 pg (27.0-31.0); MEAN CORPUSCULAR HGB CONC 36.1 g/dl (33.0-37.0); MEAN PLATELET VOLUME 9.3 fl (9.6-12.3); MONO # 0.7 10*3/uL (0.1-1.0); MONO % 5.8 % (3.0-9.0); NEUT # 8.2 10*3/uL (2.3-7.9); NEUT % 64.5 % (47.0-73.0); PLATELET COUNT AUTOMATED 255 10*3/uL (130-400); RED BLOOD COUNT 5.58 10*6/uL (4.50-5.90); RED CELL DISTRI WIDTH 11.9 % (0-14.5); WHITE BLOOD COUNT 12.6 10*3/uL (4.8-10.8)
[2023-01-03 13:21] LABS: URINE CREATININE RANDOM 53.68 mg/dL
[2023-01-03 13:27] LABS: VITAMIN D, 25-HYDROXY 22.3 ng/mL (30-100)
[2023-01-03 13:28] LABS: ALKALINE PHOSPHATASE 115 U/L (46-116); BUN 25 mg/dl (9-23); CHLORIDE 102 mmol/L (98-107); CHOLESTEROL 195 mg/dL (<200); POTASSIUM 4.2 mmol/L (3.4-5.1); SGPT/ALT 11 U/L (10-49); TOTAL PROTEIN 7.4 gm/dL (6.0-8.0); TRIGLYCERIDES 411 mg/dl (<150)
== END | disposition home or self-care (01) ==
LOC: RESCLI 01:18
PROVIDERS: ATTEND Internal Medicine
DX: S91.309A Unspecified open wound, unspecified foot, initial encounter (principal); E11.9 Type 2 diabetes mellitus without complications; I25.10 Atherosclerotic heart disease of native coronary artery without angina pectoris; I10 Essential (primary) hypertension; E78.5 Hyperlipidemia, unspecified; K21.9 Gastro-esophageal reflux disease without esophagitis; B88.8 Other specified infestations; M19.072 Primary osteoarthritis, left ankle and foot; J43.9 Emphysema, unspecified; M19.071 Primary osteoarthritis, right ankle and foot; R07.9 Chest pain, unspecified; G62.9 Polyneuropathy, unspecified; E55.9 Vitamin D deficiency, unspecified; Z88.0 Allergy status to penicillin; Z98.890 Other specified postprocedural states; Z79.899 Other long term (current) drug therapy; X58.XXXA Exposure to other specified factors, initial encounter; Y93.89 Activity, other specified; Y99.8 Other external cause status; Y92.89 Other specified places as the place of occurrence of the external cause

== ENCOUNTER → 2023-07-14 | Outpatient (CLI) | payer OTHER | END | disposition home or self-care (01) | LOC: RESCLI 00:43 | PROVIDERS: ATTEND Student in an Organized Health Care Education/Training Program | DX: E11.9 Type 2 diabetes mellitus without complications (principal); I25.10 Atherosclerotic heart disease of native coronary artery without angina pectoris; J45.909 Unspecified asthma, uncomplicated; E78.5 Hyperlipidemia, unspecified; I10 Essential (primary) hypertension; F17.210 Nicotine dependence, cigarettes, uncomplicated; J43.9 Emphysema, unspecified; G62.9 Polyneuropathy, unspecified; K21.9 Gastro-esophageal reflux disease without esophagitis; E55.9 Vitamin D deficiency, unspecified; B88.8 Other specified infestations; Z91.199 Patient's noncompliance with other medical treatment and regimen due to unspecified reason; Z79.899 Other long term (current) drug therapy; Z79.2 Long term (current) use of antibiotics; Z88.0 Allergy status to penicillin; Z79.4 Long term (current) use of insulin; Z95.0 Presence of cardiac pacemaker ==

== ENCOUNTER → 2023-09-01 | Outpatient (CLI) | payer OTHER ==
[~2023-09-01] MED LIST changes: +DALVANCE500 MG IV; +NEURONTIN800 MG PO
[2023-09-01 15:50] LABS: BASO # 0.1 10*3/uL (0.0-0.1); BASO % 0.5 % (0.0-1.0); EOS # 0.3 10*3/uL (0.0-0.4); EOS % 3.2 % (1.0-4.0); HEMATOCRIT 43.7 % (42.0-52.0); LYMPH # 2.7 10*3/uL (1.3-4.4); LYMPH % 28.2 % (27.0-41.0); MEAN CELL VOLUME 87.8 fl (80.0-94.0); MEAN CORPUSCULAR HGB 30.1 pg (27.0-31.0); MEAN CORPUSCULAR HGB CONC 34.3 g/dl (33.0-37.0); MEAN PLATELET VOLUME 9.2 fl (9.6-12.3); MONO # 0.8 10*3/uL (0.1-1.0); NEUT # 5.6 10*3/uL (2.3-7.9); NEUT % 59.7 % (47.0-73.0); PLATELET COUNT AUTOMATED 266 10*3/uL (130-400); RED BLOOD COUNT 4.98 10*6/uL (4.50-5.90); RED CELL DISTRI WIDTH 12.8 % (0-14.5); WHITE BLOOD COUNT 9.4 10*3/uL (4.8-10.8)
[2023-09-01 16:31] LABS: ALKALINE PHOSPHATASE 100 U/L (46-116); BUN 25 mg/dl (9-23); CHLORIDE 103 mmol/L (98-107); POTASSIUM 4.2 mmol/L (3.4-5.1); SGPT/ALT 9 U/L (5-49); TOTAL PROTEIN 7.5 gm/dL (6.0-8.0)
== END | disposition home or self-care (01) ==
LOC: RESCLI 01:22
PROVIDERS: Internal Medicine; ATTEND Family Medicine
DX: M86.8X7 Other osteomyelitis, ankle and foot (principal); E11.40 Type 2 diabetes mellitus with diabetic neuropathy, unspecified; I10 Essential (primary) hypertension; K21.9 Gastro-esophageal reflux disease without esophagitis; E78.5 Hyperlipidemia, unspecified; E55.9 Vitamin D deficiency, unspecified; B88.8 Other specified infestations; Z98.890 Other specified postprocedural states; Z82.49 Family history of ischemic heart disease and other diseases of the circulatory system; F17.210 Nicotine dependence, cigarettes, uncomplicated; Z88.0 Allergy status to penicillin; Z79.899 Other long term (current) drug therapy

== ENCOUNTER 2024-05-05 02:00 | Inpatient (IN) | payer OTHER ==
[~2024-05-05] VITALS: Ht 182.8 cm; Wt 91.0 kg
[2024-05-05] VITALS (10 sets, daily range): BP systolic 102–127; BP diastolic 50–68
[2024-05-05] MEDS ORDERED: Cefepime Hydrochloride 1 GM in SODIUM CHLORIDE 0.9% 50 ML IV SCH (02:05)
[2024-05-05] MEDS ORDERED: SODIUM CHLORIDE 0.9% 1,000 ML IV ONE ×2 (02:05→06:37)
[2024-05-05] MEDS ORDERED: Vancomycin Hydrochloride 250 ML IV ONE ×2 (02:05→04:40)
[2024-05-05] MEDS ORDERED: HYDROmorphONE Hydrochloride 0.5 MG/0.5 ML SYRINGE IV ONE (02:10)
[2024-05-05 02:33] LABS: HEMATOCRIT 31.8 % (42.0-52.0); MEAN CELL VOLUME 85.5 fl (80.0-94.0); MEAN CORPUSCULAR HGB 29.3 pg (27.0-31.0); MEAN CORPUSCULAR HGB CONC 34.3 g/dl (33.0-37.0); MEAN PLATELET VOLUME 8.9 fl (9.6-12.3); PLATELET COUNT AUTOMATED 357 10*3/uL (130-400); RED BLOOD COUNT 3.72 10*6/uL (4.50-5.90); RED CELL DISTRI WIDTH 12.2 % (0-14.5); WHITE BLOOD COUNT 21.3 10*3/uL (4.8-10.8)
[2024-05-05 02:36] LABS: MANUAL DIFF REFLEX YES
[2024-05-05 02:39] LABS: ACT PARTIAL THROMBO TIME 29.8 SECONDS (20.0-32.1)
[2024-05-05] MEDS ORDERED: SODIUM CHLORIDE 0.9% 1,000 ML IV SCH (02:40)
[2024-05-05 02:49] LABS: ALKALINE PHOSPHATASE 435 U/L (46-116); BUN 18 mg/dl (9-23); CHLORIDE 94 mmol/L (98-107); POTASSIUM 4.1 mmol/L (3.4-5.1); SGPT/ALT 7 U/L (5-49); TOTAL PROTEIN 6.4 gm/dL (6.0-8.0)
[2024-05-05 02:50] LABS: BURR CELLS MODERATE; PLATELET SUFFICIENCY NORMAL (NORMAL); TOTAL CELLS COUNTED 100 #CELLS
[2024-05-05] MEDS ORDERED: MAGNESIUM SULFATE 100 ML IV ONE (04:00)
[2024-05-05] MEDS ORDERED: Vancomycin Hydrochloride 1,000 MG in SODIUM CHLORIDE 0.9% 250 ML IV SCH (04:05)
[2024-05-05] MEDS ORDERED: MORPHINE Sulfate 2 MG/ML SYR IV PRN (04:05)
[2024-05-05] MEDS ORDERED: BISACODYL 5 MG TAB PO PRN (04:05)
[2024-05-05] MEDS ORDERED: Acetaminophen/Hydrocodone 5 MG/325 MG TABLET PO PRN (04:05)
[2024-05-05] MEDS ORDERED: Ondansetron Hydrochloride 4 MG/2 ML VIAL IV PRN (04:05)
[2024-05-05] MEDS ORDERED: DEXTROSE 10 % IN WATER 250 ML IV PRN (04:10)
[2024-05-05] MEDS ORDERED: Clindamycin Phosphate 50 ML IV SCH ×2 (06:00→22:00)
[2024-05-05] MEDS ORDERED: ACETAMINOPHEN 100 ML IV ONE (06:31)
[2024-05-05] MEDS ORDERED: INSULIN LISPRO 1 UNIT/0.01 ML SQ SCH (07:30)
[2024-05-05] MEDS ORDERED: HYDROmorphONE Hydrochloride 1 MG/ML SYR IV PRN ×2 (07:45→07:50)
[2024-05-05] MEDS ORDERED: HYDROmorphONE Hydrochloride 1 ML IV ONE ×2 (07:57→08:10)
[2024-05-05] MEDS ORDERED: Meropenem 1 GM in SODIUM CHLORIDE 0.9% 100 ML IV SCH (08:00)
[2024-05-05] MEDS ORDERED: VANCOMYCIN/WATER FOR INJ (PEG) 250 ML IV SCH (09:00)
[2024-05-05] MEDS ORDERED: Vancomycin Hydrochloride 1,000 MG VIAL IV ONE ×2 (11:57)
[2024-05-05] MEDS ORDERED: Vancomycin Hydrochloride 500 MG VIAL IV ONE (11:57)
[2024-05-05] MEDS ORDERED: CEFEPIME HYDROCHLORIDE IV ONE (11:57)
[2024-05-05] MEDS ORDERED: Gentamicin Sulfate 80 MG/2 ML VIAL IV ONE (11:57)
[2024-05-05] MEDS ORDERED: fentaNYL CITRATE 100 MCG/2 ML VIAL IV ONE (14:59)
[2024-05-05] MEDS ORDERED: Phenylephrine Hydrochloride 1 MG/10 ML SYRINGE IV ONE (14:59)
[2024-05-05] MEDS ORDERED: Succinylcholine Chloride 200 MG/10 ML SYRINGE IV ONE (14:59)
[2024-05-05] MEDS ORDERED: Ondansetron Hydrochloride 4 MG/2 ML VIAL IV ONE (14:59)
[2024-05-05] MEDS ORDERED: PROPOFOL 200 MG/20 ML VIAL IV ONE (14:59)
[2024-05-05] MEDS ORDERED: Ketorolac Tromethamine 30 MG/ML VIAL IV ONE (22:50)
[2024-05-05] MEDS ORDERED: Nicotine 21 MG PATCH T SCH (23:55)
[2024-05-06] VITALS: BP 120/61
[2024-05-06 06:46] LABS: HEMATOCRIT 27.2 % (42.0-52.0); MEAN CORPUSCULAR HGB 28.8 pg (27.0-31.0); MEAN CORPUSCULAR HGB CONC 32.7 g/dl (33.0-37.0); MEAN PLATELET VOLUME 9.1 fl (9.6-12.3); PLATELET COUNT AUTOMATED 357 10*3/uL (130-400); RED BLOOD COUNT 3.09 10*6/uL (4.50-5.90); RED CELL DISTRI WIDTH 12.5 % (0-14.5); WHITE BLOOD COUNT 21.5 10*3/uL (4.8-10.8)
[2024-05-06 06:47] LABS: MANUAL DIFF REFLEX YES
[2024-05-06 07:05] LABS: ALKALINE PHOSPHATASE 363 U/L (46-116); BUN 24 mg/dl (9-23); CHLORIDE 101 mmol/L (98-107); CHOLESTEROL 74 mg/dL (<200); LDL CHOLESTEROL 43 mg/dL (9-159); POTASSIUM 3.9 mmol/L (3.4-5.1); SGPT/ALT < 7 U/L (5-49); TOTAL PROTEIN 5.4 gm/dL (6.0-8.0); TRIGLYCERIDES 96 mg/dl (<150)
[2024-05-06 07:18] LABS: PLATELET SUFFICIENCY NORMAL (NORMAL); TOTAL CELLS COUNTED 100 #CELLS
[2024-05-06 07:19] LABS: ACANTHOCYTES FEW; BURR CELLS FEW; ROULEAUX SLIGHT
[2024-05-06 08:00] VITALS: BP 102/49; BP 108/58
[2024-05-06 10:06] LABS: ACID FAST SPEC PROCESSING Tissue Grinding (.)
[2024-05-06 10:06] LABS: ACID FAST SPEC PROCESSING Tissue Grinding (.)
[2024-05-06 10:06] LABS: ACID FAST SPEC PROCESSING Tissue Grinding (.)
[2024-05-06 10:06] LABS: ACID FAST SPEC PROCESSING Tissue Grinding (.)
[2024-05-06 12:00] VITALS: BP 105/53
[2024-05-06] MEDS ORDERED: SODIUM CHLORIDE 0.9% 1,000 ML IV ONE (14:10)
[2024-05-06 16:00] VITALS: BP 109/60
[2024-05-06 20:00] VITALS: BP 119/57
[2024-05-06] MEDS ORDERED: GABAPENTIN 800 MG TAB PO SCH (22:00)
[2024-05-06] MEDS ORDERED: Insulin Glargine, Recombinan 1 UNIT/0.01 ML SC SCH (22:00)
[2024-05-06] MEDS ORDERED: FOAM BANDAGE 1 EACH BANDAGE T ONE (23:02)
[2024-05-07] VITALS (12 sets, daily range): BP systolic 111–146; BP diastolic 58–82
[2024-05-07] MEDS ORDERED: Nicotine 21 MG PATCH T SCH
[2024-05-07 05:37] LABS: ALKALINE PHOSPHATASE 500 U/L (46-116); BUN 25 mg/dl (9-23); CHLORIDE 101 mmol/L (98-107); POTASSIUM 4.2 mmol/L (3.4-5.1); SGPT/ALT 12 U/L (5-49); TOTAL PROTEIN 6.1 gm/dL (6.0-8.0)
[2024-05-07 06:19] LABS: MEAN CELL VOLUME 90.3 fl (80.0-94.0); MEAN CORPUSCULAR HGB 28.7 pg (27.0-31.0); MEAN CORPUSCULAR HGB CONC 31.7 g/dl (33.0-37.0); PLATELET COUNT AUTOMATED 447 10*3/uL (130-400); RED BLOOD COUNT 3.21 10*6/uL (4.50-5.90); RED CELL DISTRI WIDTH 12.4 % (0-14.5); WHITE BLOOD COUNT 17.6 10*3/uL (4.8-10.8)
[2024-05-07 06:20] LABS: MANUAL DIFF REFLEX YES
[2024-05-07 07:11] LABS: ATYPICAL LYMPHS 1 % (0-0); TOTAL CELLS COUNTED 100 #CELLS
[2024-05-07 07:12] LABS: BURR CELLS MODERATE; OVALOCYTES FEW; PLATELET SUFFICIENCY HIGH (NORMAL); POLYCHROMASIA SLIGHT; ROULEAUX SLIGHT; TOXIC GRANULATION SLIGHT
[2024-05-07] MEDS ORDERED: Insulin Glargine, Recombinan 1 UNIT/0.01 ML SC ONE (08:55)
[2024-05-07] MEDS ORDERED: Vancomycin Hydrochloride 1,000 MG VIAL ONE (08:57)
[2024-05-07] MEDS ORDERED: LISINOPRIL 2.5 MG TAB PO SCH (10:00)
[2024-05-07] MEDS ORDERED: Lactated Ringer's Solution 1,000 ML IV ONE ×3 (11:30→14:02)
[2024-05-07] MEDS ORDERED: HYDROmorphONE Hydrochloride 1 MG/ML SYR IV PRN ×2 (11:30→14:25)
[2024-05-07] MEDS ORDERED: ACETAMINOPHEN 100 ML IV ONE (12:15)
[2024-05-07] MEDS ORDERED: Gentamicin Sulfate 80 MG/2 ML VIAL IRRIG ONE (13:15)
[2024-05-07] MEDS ORDERED: Menthol/Zinc Oxide 4 GM THIN T PRN (14:00)
[2024-05-07] MEDS ORDERED: HYDROmorphONE Hydrochloride 1 ML IV ONE ×2 (14:38→14:54)
[2024-05-07] MEDS ORDERED: MAGNESIUM SULFATE 1 GM/2 ML VIAL IV ONE (14:59)
[2024-05-07] MEDS ORDERED: Ketamine Hydrochloride 500 MG/10 ML VIAL IV ONE (14:59)
[2024-05-07] MEDS ORDERED: PROPOFOL 200 MG/20 ML VIAL IV ONE (14:59)
[2024-05-07] MEDS ORDERED: fentaNYL CITRATE 100 MCG/2 ML VIAL IV ONE (14:59)
[2024-05-07] MEDS ORDERED: Menthol/Zinc Oxide 4 GM THIN T SCH (22:00)
[2024-05-07] MEDS ORDERED: Insulin Glargine, Recombinan 1 UNIT/0.01 ML SC SCH (22:00)
[2024-05-08] VITALS: BP 134/51
[2024-05-08 05:52] LABS: ALKALINE PHOSPHATASE 497 U/L (46-116); BUN 18 mg/dl (9-23); CHLORIDE 100 mmol/L (98-107); POTASSIUM 4.7 mmol/L (3.4-5.1); SGPT/ALT 13 U/L (5-49); TOTAL PROTEIN 5.5 gm/dL (6.0-8.0)
[2024-05-08 06:14] LABS: HEMATOCRIT 25.1 % (42.0-52.0); MEAN CELL VOLUME 88.1 fl (80.0-94.0); MEAN CORPUSCULAR HGB 28.8 pg (27.0-31.0); MEAN CORPUSCULAR HGB CONC 32.7 g/dl (33.0-37.0); MEAN PLATELET VOLUME 8.8 fl (9.6-12.3); PLATELET COUNT AUTOMATED 409 10*3/uL (130-400); RED BLOOD COUNT 2.85 10*6/uL (4.50-5.90); RED CELL DISTRI WIDTH 12.6 % (0-14.5); WHITE BLOOD COUNT 17.2 10*3/uL (4.8-10.8)
[2024-05-08 06:20] LABS: MANUAL DIFF REFLEX YES
[2024-05-08 07:04] LABS: ATYPICAL LYMPHS 1 % (0-0); BURR CELLS FEW; OVALOCYTES FEW; PLATELET SUFFICIENCY HIGH (NORMAL); POLYCHROMASIA SLIGHT; TOTAL CELLS COUNTED 100 #CELLS; TOXIC GRANULATION SLIGHT
[2024-05-08 08:00] VITALS: BP 132/62
[2024-05-08] MEDS ORDERED: Insulin Glargine, Recombinan 1 UNIT/0.01 ML SC SCH (10:00)
[2024-05-08] MEDS ORDERED: ATORVASTATIN CALCIUM 40 MG TABLET PO SCH (11:00)
[2024-05-08] MEDS ORDERED: METOPROLOL SUCCINATE XR 25 MG TAB PO SCH (11:00)
[2024-05-08 12:00] VITALS: BP 126/62
[2024-05-08 15:08] LABS: ACID FAST SPEC PROCESSING Tissue Grinding (.)
[2024-05-08 15:08] LABS: ACID FAST SPEC PROCESSING Tissue Grinding (.)
[2024-05-08 15:08] LABS: ACID FAST SPEC PROCESSING Tissue Grinding (.)
[2024-05-08 15:08] LABS: ACID FAST SPEC PROCESSING Tissue Grinding (.)
[2024-05-08 15:08] LABS: ACID FAST SPEC PROCESSING Tissue Grinding (.)
[2024-05-08 16:00] VITALS: BP 110/52
[2024-05-08 20:00] VITALS: BP 135/58
[2024-05-08] MEDS ORDERED: HEEL PROTECTOR DEVICE ONE (20:44)
[2024-05-08] MEDS ORDERED: CHAIR CUSHION DEVICE ONE (20:44)
[2024-05-08] MEDS ORDERED: DALVANCE500 MG IV (23:21)
[2024-05-09] VITALS: BP 125/58
[2024-05-09 06:09] LABS: HEMATOCRIT 24.2 % (42.0-52.0); MEAN CORPUSCULAR HGB 29.4 pg (27.0-31.0); MEAN CORPUSCULAR HGB CONC 33.1 g/dl (33.0-37.0); MEAN PLATELET VOLUME 8.5 fl (9.6-12.3); PLATELET COUNT AUTOMATED 415 10*3/uL (130-400); RED BLOOD COUNT 2.72 10*6/uL (4.50-5.90); RED CELL DISTRI WIDTH 12.8 % (0-14.5); WHITE BLOOD COUNT 19.6 10*3/uL (4.8-10.8)
[2024-05-09 06:12] LABS: MANUAL DIFF REFLEX YES
[2024-05-09 06:17] LABS: BUN 17 mg/dl (9-23); CHLORIDE 103 mmol/L (98-107); POTASSIUM 4.7 mmol/L (3.4-5.1)
[2024-05-09 07:33] LABS: TOTAL CELLS COUNTED 100 #CELLS
[2024-05-09 07:34] LABS: PLATELET SUFFICIENCY HIGH (NORMAL); POLYCHROMASIA SLIGHT
[2024-05-09 08:00] VITALS: BP 113/65
[2024-05-09] MEDS ORDERED: IOHEXOL 350 MG/ML 100 ML VIAL IV ONE (08:55)
[2024-05-09] MEDS ORDERED: SODIUM CHLORIDE 0.9% 100 ML BAG IV ONE (08:55)
[2024-05-09] MEDS ORDERED: ASPIRIN ENTERIC COATED 81 MG TAB PO SCH (10:00)
[2024-05-09 12:00] VITALS: BP 112/62
[2024-05-09 16:00] VITALS: BP 119/61
[2024-05-09 16:50] VITALS: BP 117/60
[2024-05-09] MEDS ORDERED: ACETAMINOPHEN 325 MG TAB PO PRN (17:45)
[2024-05-09] MEDS ORDERED: CEFTRIAXONE2 G1 IV (18:30)
[2024-05-09 20:00] VITALS: BP 105/48
[2024-05-09] MEDS ORDERED: Ceftriaxone Sodium 2 GM in SYRINGE INFUSION 20 ML IV SCH (20:00)
[2024-05-10] VITALS: BP 116/57
[2024-05-10 05:18] LABS: BUN 18 mg/dl (9-23); CHLORIDE 103 mmol/L (98-107); POTASSIUM 4.5 mmol/L (3.4-5.1)
[2024-05-10 06:19] LABS: HEMATOCRIT 24.2 % (42.0-52.0); MEAN CORPUSCULAR HGB 29.4 pg (27.0-31.0); MEAN CORPUSCULAR HGB CONC 32.6 g/dl (33.0-37.0); MEAN PLATELET VOLUME 8.6 fl (9.6-12.3); PLATELET COUNT AUTOMATED 432 10*3/uL (130-400); RED BLOOD COUNT 2.69 10*6/uL (4.50-5.90); RED CELL DISTRI WIDTH 12.8 % (0-14.5); WHITE BLOOD COUNT 15.4 10*3/uL (4.8-10.8)
[2024-05-10 06:21] LABS: MANUAL DIFF REFLEX YES
[2024-05-10 07:02] LABS: PLATELET SUFFICIENCY HIGH (NORMAL); POLYCHROMASIA SLIGHT; ROULEAUX MODERATE; TOTAL CELLS COUNTED 100 #CELLS
[2024-05-10 07:03] LABS: BURR CELLS MODERATE
[2024-05-10 08:00] VITALS: BP 124/62
[2024-05-10] MEDS ORDERED: METRONIDAZOLE500 M1 PO (11:14)
[2024-05-10] MEDS ORDERED: CEFTRIAXONE2 G1 IV (11:14)
[2024-05-10 12:00] VITALS: BP 122/63
[2024-05-10 16:00] VITALS: BP 115/50
[2024-05-10 20:00] VITALS: BP 117/48
[2024-05-11] VITALS: BP 114/52
[2024-05-11] MEDS ORDERED: VANC1PIG IV (00:07)
[2024-05-11 06:42] LABS: HEMATOCRIT 28.7 % (42.0-52.0); MEAN CORPUSCULAR HGB 28.2 pg (27.0-31.0); MEAN CORPUSCULAR HGB CONC 30.7 g/dl (33.0-37.0); MEAN PLATELET VOLUME 8.8 fl (9.6-12.3); PLATELET COUNT AUTOMATED 463 10*3/uL (130-400); RED BLOOD COUNT 3.12 10*6/uL (4.50-5.90); WHITE BLOOD COUNT 14.8 10*3/uL (4.8-10.8)
[2024-05-11 06:52] LABS: BUN 11 mg/dl (9-23); CHLORIDE 102 mmol/L (98-107); MANUAL DIFF REFLEX YES
[2024-05-11 08:00] VITALS: BP 123/60; BP 127/53; BP 137/56
[2024-05-11 08:17] LABS: PLATELET SUFFICIENCY HIGH (NORMAL); POLYCHROMASIA SLIGHT; TOTAL CELLS COUNTED 100 #CELLS
[2024-05-11 12:13] VITALS: BP 124/51
[2024-05-11 13:07] LABS: ANAEROBE RESULT 1 Bacteroides vulgatus (.)
[2024-05-11] MEDS ORDERED: VANCO 1 GR1 GM/250 M IV (14:37)
[2024-05-11] MEDS ORDERED: CEFTRIAXON2 GM/50 ML IV (14:37)
[2024-05-11] MEDS ORDERED: METRONIDAZOLE500 M1 PO (14:37)
[2024-05-11 16:05] VITALS: BP 125/53
[2024-05-11] MEDS ORDERED: ASPIRIN ADULT L81 M2 PO (16:44)
[2024-05-11] MEDS ORDERED: LANTUS100 UNIT/1 SC (16:44)
[2024-05-11] MEDS ORDERED: ATORVASTATIN CA40 M1 PO (16:44)
[2024-05-11] MEDS ORDERED: NEURONTIN800 MG PO (16:44)
[2024-05-11] MEDS ORDERED: METOPROLOL SUCC25 M2 PO (16:44)
[2024-05-11] MEDS ORDERED: ADMELOG100 UNIT/1 SQ (16:44)
[2024-05-11] MEDS ORDERED: HYDROCODONE-AC1 EAC1 PO (16:46)
[2024-05-14 17:06] LABS: ANAEROBE RESULT 1 Bacteroides pyogenes (.)
== END 2024-05-11 19:59 | DRG 853 ==
LOC: ED 02:00 → 4E 04:00 → EDHOLD 04:00 → 4E 05:27
PROVIDERS: Internal Medicine; Podiatrist; Student in an Organized Health Care Education/Training Program; ADMIT Student in an Organized Health Care Education/Training Program; ATTEND Student in an Organized Health Care Education/Training Program
PROC: 0QBN0ZX Excision of Right Metatarsal, Open Approach, Diagnostic (ICD-10-PCS; 2024-05-05)
PROC: 0QBG0ZX Excision of Right Tibia, Open Approach, Diagnostic (ICD-10-PCS; 2024-05-05)
PROC: 0KNV0ZZ Release Right Foot Muscle, Open Approach (ICD-10-PCS; 2024-05-05)
PROC: 0KNS0ZZ Release Right Lower Leg Muscle, Open Approach (ICD-10-PCS; 2024-05-05)
PROC: 0KNQ0ZZ Release Right Upper Leg Muscle, Open Approach (ICD-10-PCS; 2024-05-05)
PROC: 0QBJ0ZX Excision of Right Fibula, Open Approach, Diagnostic (ICD-10-PCS; 2024-05-05)
PROC: 2W3QX1Z Immobilization of Right Lower Leg using Splint (ICD-10-PCS; 2024-05-05)
PROC: 2W1SX6Z Compression of Right Foot using Pressure Dressing (ICD-10-PCS; 2024-05-05)
PROC: 0QBG0ZX Excision of Right Tibia, Open Approach, Diagnostic (ICD-10-PCS; principal; 2024-05-07)
PROC: 0JBQ0ZZ Excision of Right Foot Subcutaneous Tissue and Fascia, Open Approach (ICD-10-PCS; 2024-05-07)
PROC: 0QBN0ZX Excision of Right Metatarsal, Open Approach, Diagnostic (ICD-10-PCS; 2024-05-07)
PROC: 0QHJ05Z Insertion of External Fixation Device into Right Fibula, Open Approach (ICD-10-PCS; 2024-05-07)
PROC: 0QHG05Z Insertion of External Fixation Device into Right Tibia, Open Approach (ICD-10-PCS; 2024-05-07)
PROC: 0QHL05Z Insertion of External Fixation Device into Right Tarsal, Open Approach (ICD-10-PCS; 2024-05-07)
PROC: 02H633Z Insertion of Infusion Device into Right Atrium, Percutaneous Approach (ICD-10-PCS; 2024-05-11)
PROC: B548ZZA Ultrasonography of Superior Vena Cava, Guidance (ICD-10-PCS; 2024-05-11)
DX: A41.89 Other specified sepsis (principal); A48.0 Gas gangrene; E43 Unspecified severe protein-calorie malnutrition; M72.6 Necrotizing fasciitis; I47.29 Other ventricular tachycardia; E11.52 Type 2 diabetes mellitus with diabetic peripheral angiopathy with gangrene; T79.A21A Traumatic compartment syndrome of right lower extremity, initial encounter; F33.9 Major depressive disorder, recurrent, unspecified; M86.8X7 Other osteomyelitis, ankle and foot; N39.0 Urinary tract infection, site not specified; F17.210 Nicotine dependence, cigarettes, uncomplicated; Z79.899 Other long term (current) drug therapy; F11.90 Opioid use, unspecified, uncomplicated; E83.42 Hypomagnesemia; I10 Essential (primary) hypertension; G89.4 Chronic pain syndrome; E78.5 Hyperlipidemia, unspecified; L89.152 Pressure ulcer of sacral region, stage 2; L89.890 Pressure ulcer of other site, unstageable; B95.2 Enterococcus as the cause of diseases classified elsewhere; E11.40 Type 2 diabetes mellitus with diabetic neuropathy, unspecified; S92.411A Displaced fracture of proximal phalanx of right great toe, initial encounter for closed fracture; E11.65 Type 2 diabetes mellitus with hyperglycemia; S98.131A Complete traumatic amputation of one right lesser toe, initial encounter; E11.69 Type 2 diabetes mellitus with other specified complication; X58.XXXA Exposure to other specified factors, initial encounter; Z88.0 Allergy status to penicillin; Z88.8 Allergy status to other drugs, medicaments and biological substances; Z79.4 Long term (current) use of insulin; Z89.421 Acquired absence of other right toe(s); Y93.89 Activity, other specified; Y92.89 Other specified places as the place of occurrence of the external cause; Y99.8 Other external cause status; Z95.0 Presence of cardiac pacemaker; Z68.27 Body mass index [BMI] 27.0-27.9, adult

== ENCOUNTER → 2024-05-23 | Day surgery (SDC) | payer OTHER ==
[~2024-05-23] VITALS: Ht 182.8 cm; Wt 86.2 kg
[~2024-05-23] MED LIST changes: +ADMELOG100 UNIT/1 SQ; +ASPIRIN ADULT L81 M2 PO; +ATORVASTATIN CA40 M1 PO; +CEFTRIAXONE2 G1 IV; +LANTUS100 UNIT/1 SC; +METOPROLOL SUCC25 M2 PO; +VANC1PIG IV; +VANCO 1 GR1 GM/250 M IV
== END | disposition home or self-care (01) ==
LOC: SDC 05-21 10:15
PROVIDERS: ATTEND Podiatrist
DX: T84.197A Other mechanical complication of internal fixation device of bone of left lower leg, initial encounter (principal); Z53.8 Procedure and treatment not carried out for other reasons; X58.XXXA Exposure to other specified factors, initial encounter

== ENCOUNTER → 2024-06-28 | Outpatient (CLI) | payer OTHER | END | disposition home or self-care (01) | LOC: WOUNDCARE | PROVIDERS: ATTEND Nurse Practitioner Family | DX: E11.621 Type 2 diabetes mellitus with foot ulcer (principal); L97.512 Non-pressure chronic ulcer of other part of right foot with fat layer exposed; E11.69 Type 2 diabetes mellitus with other specified complication; M86.671 Other chronic osteomyelitis, right ankle and foot; E11.52 Type 2 diabetes mellitus with diabetic peripheral angiopathy with gangrene; A48.0 Gas gangrene; E11.40 Type 2 diabetes mellitus with diabetic neuropathy, unspecified; I10 Essential (primary) hypertension; I25.10 Atherosclerotic heart disease of native coronary artery without angina pectoris; E78.5 Hyperlipidemia, unspecified; M19.90 Unspecified osteoarthritis, unspecified site; F41.9 Anxiety disorder, unspecified; F17.210 Nicotine dependence, cigarettes, uncomplicated; F11.10 Opioid abuse, uncomplicated; Z90.49 Acquired absence of other specified parts of digestive tract; Z89.421 Acquired absence of other right toe(s); Z95.0 Presence of cardiac pacemaker; Z79.4 Long term (current) use of insulin; Z79.82 Long term (current) use of aspirin; Z79.84 Long term (current) use of oral hypoglycemic drugs; Z79.899 Other long term (current) drug therapy ==

== ENCOUNTER 2024-12-06 19:16 | Inpatient (IN) | payer OTHER ==
[~2024-12-06] VITALS: Ht 182.8 cm; Wt 88.5 kg
[~2024-12-06 19:16] MED LIST changes: +HUMALOG100 UNIT/1 SC; +LIPITOR40 MG PO; +OXYCODONE-ACET1 EAC3 PO
[2024-12-06 19:18] VITALS: BP 126/50
[2024-12-06] MEDS ORDERED: IOHEXOL 300 MG/ML 100 ML VIAL IV ONE (19:35)
[2024-12-06 19:51] LABS: BASO % 0.4 % (0.0-1.0); EOS # 0.2 10*3/uL (0.0-0.4); EOS % 1.6 % (1.0-4.0); HEMATOCRIT 33.6 % (42.0-52.0); MEAN CELL VOLUME 85.5 fl (80.0-94.0); MEAN CORPUSCULAR HGB 28.8 pg (27.0-31.0); MEAN CORPUSCULAR HGB CONC 33.6 g/dl (33.0-37.0); MEAN PLATELET VOLUME 9.3 fl (9.6-12.3); MONO # 0.7 10*3/uL (0.1-1.0); MONO % 5.8 % (3.0-9.0); NEUT # 8.8 10*3/uL (2.3-7.9); PLATELET COUNT AUTOMATED 403 10*3/uL (130-400); RED BLOOD COUNT 3.93 10*6/uL (4.50-5.90); RED CELL DISTRI WIDTH 13.2 % (0-14.5); WHITE BLOOD COUNT 11.3 10*3/uL (4.8-10.8)
[2024-12-06 20:01] LABS: ACT PARTIAL THROMBO TIME 27.6 SECONDS (20.0-32.1)
[2024-12-06 20:45] LABS: BUN 21 mg/dl (9-23); CHLORIDE 99 mmol/L (98-107); POTASSIUM 4.3 mmol/L (3.4-5.1)
[2024-12-06] MEDS ORDERED: INSULIN REGULAR, HUMAN 1 UNIT/0.01 ML IV ONE (20:50)
[2024-12-06] MEDS ORDERED: ACETAMINOPHEN 325 MG TAB PO ONE (22:40)
[2024-12-07] VITALS (10 sets, daily range): BP systolic 103–155; BP diastolic 58–73
[2024-12-07] MEDS ORDERED: Vancomycin Hydrochloride 250 ML IV ONE (00:20)
[2024-12-07] MEDS ORDERED: Cefepime Hydrochloride 1 GM in SODIUM CHLORIDE 0.9% 50 ML IV SCH (00:20)
[2024-12-07] MEDS ORDERED: BISACODYL 5 MG TAB PO PRN (00:45)
[2024-12-07] MEDS ORDERED: Magnesium Hydroxide 30 ML UDC PO PRN (00:45)
[2024-12-07] MEDS ORDERED: BISACODYL 10 MG SUPP R PRN (00:45)
[2024-12-07] MEDS ORDERED: ACETAMINOPHEN 650 MG SUPP R PRN (00:45)
[2024-12-07] MEDS ORDERED: Ondansetron Hydrochloride 4 MG/2 ML VIAL IV PRN (00:45)
[2024-12-07] MEDS ORDERED: MORPHINE Sulfate 2 MG/ML SYR IV PRN (00:45)
[2024-12-07] MEDS ORDERED: ACETAMINOPHEN 325 MG TAB PO PRN (00:45)
[2024-12-07] MEDS ORDERED: DEXTROSE 10 % IN WATER 250 ML IV PRN (01:15)
[2024-12-07 06:17] LABS: BASO # 0.1 10*3/uL (0.0-0.1); BASO % 0.6 % (0.0-1.0); EOS # 0.3 10*3/uL (0.0-0.4); EOS % 3.1 % (1.0-4.0); HEMATOCRIT 33.3 % (42.0-52.0); MEAN CELL VOLUME 85.6 fl (80.0-94.0); MEAN CORPUSCULAR HGB CONC 33.9 g/dl (33.0-37.0); MEAN PLATELET VOLUME 9.1 fl (9.6-12.3); MONO # 0.7 10*3/uL (0.1-1.0); MONO % 6.9 % (3.0-9.0); NEUT # 6.4 10*3/uL (2.3-7.9); NEUT % 65.8 % (47.0-73.0); PLATELET COUNT AUTOMATED 380 10*3/uL (130-400); RED BLOOD COUNT 3.89 10*6/uL (4.50-5.90); RED CELL DISTRI WIDTH 13.2 % (0-14.5); WHITE BLOOD COUNT 9.7 10*3/uL (4.8-10.8)
[2024-12-07 06:52] LABS: ALKALINE PHOSPHATASE 163 U/L (46-116); BUN 18 mg/dl (9-23); CHLORIDE 100 mmol/L (98-107); FREE T4 0.92 ng/dl (0.89-1.76); POTASSIUM 3.7 mmol/L (3.4-5.1); SGPT/ALT < 7 U/L (5-49); TOTAL PROTEIN 6.3 gm/dL (6.0-8.0)
[2024-12-07] MEDS ORDERED: INSULIN LISPRO 1 UNIT/0.01 ML SQ SCH (07:30)
[2024-12-07] MEDS ORDERED: VANCOMYCIN/WATER FOR INJ (PEG) 300 ML IV SCH (08:00)
[2024-12-07] MEDS ORDERED: Cefepime Hydrochloride 2 GM in SODIUM CHLORIDE 0.9% 50 ML IV SCH (10:00)
[2024-12-07] MEDS ORDERED: BENZONATATE 100 MG CAP PO PRN (10:30)
[2024-12-07] MEDS ORDERED: BENZONATATE 100 MG CAP PO ONE (10:30)
[2024-12-07] MEDS ORDERED: Vancomycin Hydrochloride 1,000 MG VIAL ONE ×3 (12:50→14:06)
[2024-12-07] MEDS ORDERED: Lidocaine Hydrochloride 2% 5 ML SDV IV ONE (14:35)
[2024-12-07] MEDS ORDERED: Ketamine Hydrochloride 50 MG/5 ML SYRINGE IV ONE (14:35)
[2024-12-07] MEDS ORDERED: Midazolam Hydrochloride 2 MG/2 ML VIAL IV ONE (14:35)
[2024-12-07] MEDS ORDERED: Ondansetron Hydrochloride 4 MG/2 ML VIAL IV ONE (14:35)
[2024-12-07] MEDS ORDERED: PROPOFOL 200 MG/20 ML VIAL IV ONE (14:35)
[2024-12-07] MEDS ORDERED: HYDROmorphone Hydrochloride 1 MG/ML SYR IV ONE (19:45)
[2024-12-07] MEDS ORDERED: metroNIDAZOLE 500 MG TAB PO SCH (22:00)
[2024-12-08 00:39] VITALS: BP 127/58
[2024-12-08 06:05] LABS: BUN 20 mg/dl (9-23); CHLORIDE 101 mmol/L (98-107); POTASSIUM 4.1 mmol/L (3.4-5.1)
[2024-12-08 06:21] LABS: BASO # 0.1 10*3/uL (0.0-0.1); BASO % 0.5 % (0.0-1.0); EOS # 0.3 10*3/uL (0.0-0.4); EOS % 2.7 % (1.0-4.0); HEMATOCRIT 32.1 % (42.0-52.0); MEAN CELL VOLUME 87.9 fl (80.0-94.0); MEAN CORPUSCULAR HGB 28.8 pg (27.0-31.0); MEAN CORPUSCULAR HGB CONC 32.7 g/dl (33.0-37.0); MEAN PLATELET VOLUME 8.7 fl (9.6-12.3); MONO # 0.7 10*3/uL (0.1-1.0); MONO % 7.7 % (3.0-9.0); NEUT # 6.9 10*3/uL (2.3-7.9); NEUT % 70.8 % (47.0-73.0); PLATELET COUNT AUTOMATED 348 10*3/uL (130-400); RED BLOOD COUNT 3.65 10*6/uL (4.50-5.90); RED CELL DISTRI WIDTH 13.2 % (0-14.5); WHITE BLOOD COUNT 9.7 10*3/uL (4.8-10.8)
[2024-12-08 08:00] VITALS: BP 126/66
[2024-12-08] MEDS ORDERED: Enoxaparin Sodium 40 MG/0.4 ML SYR SC SCH (10:00)
[2024-12-08] MEDS ORDERED: Cholecalciferol 5,000 IU CAP (125 MCG) PO SCH (10:00)
[2024-12-08] MEDS ORDERED: MORPHINE Sulfate 2 MG/ML SYR IV PRN (11:39)
[2024-12-08] MEDS ORDERED: Acetaminophen/Hydrocodone 5 MG/325 MG TABLET PO PRN (11:40)
[2024-12-08 12:00] VITALS: BP 154/69
[2024-12-08 13:07] LABS: ACID FAST SPEC PROCESSING Tissue Grinding (.)
[2024-12-08 13:07] LABS: ACID FAST SPEC PROCESSING Tissue Grinding (.)
[2024-12-08 13:07] LABS: ACID FAST SPEC PROCESSING Tissue Grinding (.)
[2024-12-08] MEDS ORDERED: GABAPENTIN 800 MG TAB PO SCH (14:00)
[2024-12-08 16:00] VITALS: BP 138/67
[2024-12-08 20:00] VITALS: BP 126/51
[2024-12-08] MEDS ORDERED: Insulin Glargine, Recombinan 1 UNIT/0.01 ML SC SCH (22:00)
[2024-12-09] VITALS: BP 145/71
[2024-12-09] MEDS ORDERED: Vancomycin Hydrochloride 1,000 MG in SODIUM CHLORIDE 0.9% 250 ML IV SCH
[2024-12-09] MEDS ORDERED: Nicotine 21 MG PATCH T SCH (04:00)
[2024-12-09 06:28] LABS: BASO % 0.6 % (0.0-1.0); EOS # 0.3 10*3/uL (0.0-0.4); EOS % 4.3 % (1.0-4.0); HEMATOCRIT 32.2 % (42.0-52.0); MEAN CORPUSCULAR HGB 29.2 pg (27.0-31.0); MEAN CORPUSCULAR HGB CONC 33.5 g/dl (33.0-37.0); MONO # 0.6 10*3/uL (0.1-1.0); MONO % 8.9 % (3.0-9.0); NEUT # 3.7 10*3/uL (2.3-7.9); NEUT % 59.4 % (47.0-73.0); PLATELET COUNT AUTOMATED 346 10*3/uL (130-400); RED CELL DISTRI WIDTH 13.3 % (0-14.5); WHITE BLOOD COUNT 6.3 10*3/uL (4.8-10.8)
[2024-12-09 06:34] LABS: BUN 20 mg/dl (9-23); CHLORIDE 102 mmol/L (98-107); POTASSIUM 4.6 mmol/L (3.4-5.1)
[2024-12-09 07:58] VITALS: BP 157/72
[2024-12-09] MEDS ORDERED: ATORVASTATIN CALCIUM 40 MG TABLET PO SCH (10:00)
[2024-12-09] MEDS ORDERED: METOPROLOL SUCCINATE XR 25 MG TAB PO SCH (10:00)
[2024-12-09 12:00] VITALS: BP 143/70
[2024-12-09 16:00] VITALS: BP 144/63
[2024-12-09 20:00] VITALS: BP 142/71
[2024-12-10] VITALS: BP 128/63
[2024-12-10] MEDS ORDERED: DALVANCE500 MG IV (03:52)
[2024-12-10 06:08] LABS: BUN 20 mg/dl (9-23); CHLORIDE 102 mmol/L (98-107); POTASSIUM 4.2 mmol/L (3.4-5.1)
[2024-12-10 06:10] LABS: BASO # 0.1 10*3/uL (0.0-0.1); BASO % 0.6 % (0.0-1.0); EOS # 0.3 10*3/uL (0.0-0.4); EOS % 4.3 % (1.0-4.0); HEMATOCRIT 31.3 % (42.0-52.0); MEAN CELL VOLUME 87.2 fl (80.0-94.0); MEAN CORPUSCULAR HGB CONC 33.2 g/dl (33.0-37.0); MEAN PLATELET VOLUME 8.8 fl (9.6-12.3); MONO # 0.6 10*3/uL (0.1-1.0); MONO % 7.9 % (3.0-9.0); NEUT # 4.7 10*3/uL (2.3-7.9); PLATELET COUNT AUTOMATED 326 10*3/uL (130-400); RED BLOOD COUNT 3.59 10*6/uL (4.50-5.90); RED CELL DISTRI WIDTH 13.3 % (0-14.5); WHITE BLOOD COUNT 7.9 10*3/uL (4.8-10.8)
[2024-12-10 08:00] VITALS: BP 167/72
[2024-12-10 12:00] VITALS: BP 140/71
[2024-12-10 16:00] VITALS: BP 115/45
[2024-12-10 20:00] VITALS: BP 136/53
[2024-12-11] VITALS: BP 151/66
[2024-12-11 06:32] LABS: BASO # 0.1 10*3/uL (0.0-0.1); BASO % 0.8 % (0.0-1.0); EOS # 0.3 10*3/uL (0.0-0.4); EOS % 4.1 % (1.0-4.0); HEMATOCRIT 31.6 % (42.0-52.0); MEAN CELL VOLUME 87.3 fl (80.0-94.0); MEAN CORPUSCULAR HGB 28.2 pg (27.0-31.0); MEAN CORPUSCULAR HGB CONC 32.3 g/dl (33.0-37.0); MEAN PLATELET VOLUME 9.1 fl (9.6-12.3); MONO # 0.7 10*3/uL (0.1-1.0); MONO % 8.2 % (3.0-9.0); NEUT # 4.7 10*3/uL (2.3-7.9); NEUT % 59.8 % (47.0-73.0); PLATELET COUNT AUTOMATED 328 10*3/uL (130-400); RED BLOOD COUNT 3.62 10*6/uL (4.50-5.90); RED CELL DISTRI WIDTH 13.7 % (0-14.5); WHITE BLOOD COUNT 7.9 10*3/uL (4.8-10.8)
[2024-12-11 06:49] LABS: BUN 22 mg/dl (9-23); CHLORIDE 104 mmol/L (98-107); POTASSIUM 4.4 mmol/L (3.4-5.1)
[2024-12-11 08:00] VITALS: BP 132/75
[2024-12-11] MEDS ORDERED: VITAMIN D3125 MC1 PO (10:58)
[2024-12-11 12:00] VITALS: BP 140/68
== END 2024-12-11 15:42 | disposition home or self-care (01) | DRG 477 ==
LOC: ED 19:16 → 5E 12-07 00:24 → EDHOLD 12-07 00:24 → 5E 12-07 00:45
PROVIDERS: Internal Medicine; Podiatrist; Student in an Organized Health Care Education/Training Program; ADMIT Internal Medicine; ATTEND Internal Medicine
PROC: 0SP Lower Joints, Removal (ICD-10-PCS; principal; 2024-12-07)
PROC: 0Q9N0ZX Drainage of Right Metatarsal, Open Approach, Diagnostic (ICD-10-PCS; 2024-12-07)
PROC: 2W3LX1Z Immobilization of Right Lower Extremity using Splint (ICD-10-PCS; 2024-12-07)
DX: T84.59XA Infection and inflammatory reaction due to other internal joint prosthesis, initial encounter (principal); E43 Unspecified severe protein-calorie malnutrition; F33.1 Major depressive disorder, recurrent, moderate; M86.371 Chronic multifocal osteomyelitis, right ankle and foot; E11.69 Type 2 diabetes mellitus with other specified complication; Y83.8 Other surgical procedures as the cause of abnormal reaction of the patient, or of later complication, without mention of misadventure at the time of the procedure; Y92.89 Other specified places as the place of occurrence of the external cause; Z66 Do not resuscitate; S91.301A Unspecified open wound, right foot, initial encounter; K59.00 Constipation, unspecified; E11.65 Type 2 diabetes mellitus with hyperglycemia; D75.839 Thrombocytosis, unspecified; K59.03 Drug induced constipation; E11.51 Type 2 diabetes mellitus with diabetic peripheral angiopathy without gangrene; E83.51 Hypocalcemia; E11.610 Type 2 diabetes mellitus with diabetic neuropathic arthropathy; B95.2 Enterococcus as the cause of diseases classified elsewhere; B95.4 Other streptococcus as the cause of diseases classified elsewhere; B96.1 Klebsiella pneumoniae [K. pneumoniae] as the cause of diseases classified elsewhere; B95.62 Methicillin resistant Staphylococcus aureus infection as the cause of diseases classified elsewhere; D64.9 Anemia, unspecified; F17.210 Nicotine dependence, cigarettes, uncomplicated; I10 Essential (primary) hypertension; E11.42 Type 2 diabetes mellitus with diabetic polyneuropathy; E11.40 Type 2 diabetes mellitus with diabetic neuropathy, unspecified; Z91.199 Patient's noncompliance with other medical treatment and regimen due to unspecified reason; Z90.49 Acquired absence of other specified parts of digestive tract; Z88.0 Allergy status to penicillin; Z88.8 Allergy status to other drugs, medicaments and biological substances; Z79.4 Long term (current) use of insulin; Z79.899 Other long term (current) drug therapy; Z79.1 Long term (current) use of non-steroidal anti-inflammatories (NSAID); Z51.5 Encounter for palliative care; Z95.810 Presence of automatic (implantable) cardiac defibrillator; Z68.26 Body mass index [BMI] 26.0-26.9, adult